=== PATIENT | female | born 1950 | race Two or more races ===

== ENCOUNTER 2024-04-01 14:52 | Inpatient (IN) | payer MEDICARE, MEDICAID, SELFPAY ==
[2024-04-01] VITALS (7 sets, daily range): BP systolic 88–120; BP diastolic 55–96; PULSE 80–112; RESP 14–95; TEMP 36.3–37.1; O2SAT 93–100; BMI 26.2; BMI 21.4
--- NOTE | 2024-04-01 16:01 | EKG_ITS ---
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1950 Requested By: Ray Rojas ([facility]) Order Number: [id number] Reading MD: Ray Rojas ([facility]) Measurements Intervals Somis Rate: 81 P: 65 WA: 160 QRS: 55 QRSD: 85 T: 103 QT: 385 QTc: 448 Interpretive Statements SINUS RHYTHM SEPTAL MYOCARDIAL INFARCTION , OF INDETERMINATE AGE [40+ ms Q WAVE IN V1/V2] MODERATE T-WAVE ABNORMALITY, CONSIDER LATERAL ISCHEMIA [-0.1+ mV T WAVE IN I/aVL/V5/V6] Compared to ECG 10/03/2021 08:44:39 Myocardial infarct finding now present Possible ischemia now present T-wave abnormality still present /store/S0/[id number]/[id number].pdf
--- NOTE | 2024-04-01 16:01 | XR_ITS ---
Examination: PA lateral chest 2 views Technique: Upright PA lateral chest 2 views Exam date and time: April 01, 2024 1623 hrs. Comparison February 05, 2016 Indications: Weakness flulike symptoms today. Findings: Opacity in the left lower lung zone most consistent with pneumonia Normal heart size Moderate osteopenia Impression: Findings most consistent with pneumonia in the left mid and lower lung zone, follow-up recommended to document clearing and exclude underlying pulmonary mass
--- NOTE | 2024-04-01 16:02 | PD.EDRME ---
Rapid Medical Screening Exam E Arrival date/time: 04/01/24 14:52 74-year-old female with past medical history of hypertension, diabetes, and CAD presents emergency department complaining of generalized weakness that started last night. Chief Complaint: Flu Like Symptoms Time Seen by Provider: 04/01/24 15:48 Vital signs: Vital Signs Temperature 97.4 F 04/01/24 15:33 Pulse Rate 83 04/01/24 15:33 Respiratory Rate 18 04/01/24 15:33 Blood Pressure 94/64 04/01/24 15:33 Pulse Oximetry (%) 98 04/01/24 15:33 Oxygen Delivery Method Room Air 04/01/24 15:33 Vital signs reviewed by provider: Yes
[2024-04-01 16:28] LABS: Basophils # (Auto) 0.1 Thou/mm3 (0.0-0.2); Basophils % (Auto) 0 % (0-2.5); Eosinophils % (Auto) 0 % (0-10); Hematocrit 40.5 % (36.0-46.0); Hemoglobin 13.2 g/dL (12.0-16.0); Immature Granulocytes % (Auto) 1 % (0-0); Immature Granulocytes Auto 0.12 Thou/mm3 (0.00-0.00); Lymphocytes # (Auto) 3.3 Thou/mm3 (1.0-4.8); Lymphocytes % (Auto) 14 % (10-50); Mean Corpuscular HGB Conc 32.6 g/dl (31.0-37.0); Mean Corpuscular Hemoglobin 27.7 pg (25.0-35.0); Mean Corpuscular Volume 85 fL (80-100); Monocytes # (Auto) 1.4 Thou/mm3 (0.0-0.8); Monocytes % (Auto) 6 % (0-12); Neutrophils # (Auto) 18.4 Thou/mm3 (1.8-7.7); Neutrophils % (Auto) 79 % (37-80); Nucleated Red Blood Cell % 0 /100 WBC (0); Platelet Count 353 Thou/mm3 (140-440); RDW Standard Deviation 42.6 fL (36.4-46.3); Red Blood Count 4.76 Miln/mm3 (4.00-5.20); White Blood Count 23.3 Thou/mm3 (3.6-11.0)
[2024-04-01 16:57] LABS: Alanine Aminotransferase 15 U/L (10-49); Albumin, Serum 5.1 gm/dL (3.4-4.8); Albumin/Globulin Ratio 1.5 (1.2-2.2); Alkaline Phosphatase 72 U/L (46-116); Anion Gap 14 (7-16); Aspartate Amino Transferase 19 U/L (0-34); BUN/Creatinine Ratio 14 Ratio (12-20); Bilirubin,Total 0.6 mg/dL (0.3-1.2); Blood Urea Nitrogen 17 mg/dL (9-23); Calcium 9.7 mg/dL (8.3-10.6); Calcium (Corrected) 9.7 mg/dL (8.5-10.1); Carbon Dioxide 21.1 mMol/L (20.0-31.0); Chloride 98 mMol/L (98-107); Creatinine (Component) 1.2 mg/dL (0.6-1.3); Estimated Creatinine Clearance 28.1 mL/min (>60); Globulin 3.3 gm/dL (2.3-3.5); Glucose 264 mg/dL (74-106); Osmolality,Calculated 276 (275-295); Potassium 4.2 mMol/L (3.4-5.1); Sodium 133 mMol/L (136-145); Total Protein 8.4 gm/dL (5.7-8.2); eGFR 48 See Note
[2024-04-01 17:02] LABS: Troponin I 1.675 ng/mL (0.0-0.045)
[2024-04-01 17:17] LABS: B-Type Natriuretic Peptide 1648 pg/mL (0-100)
--- NOTE | 2024-04-01 18:00 | PD.EDADULT ---
ED General RME/HPI General Chief complaint: Flu Like Symptoms Stated complaint: FEVER 102/TIRED/SWEATING/WEAK SINCE LAST NIGHT Time Seen by Provider: 04/01/24 15:48 Arrival date/time: 04/01/24 14:52 RME / HPI RME / HPI narrative: 04/01/24 14:52 RME: 74-year-old female with past medical history of hypertension, diabetes, and CAD presents emergency department complaining of generalized weakness that started last night. KAREN HPI: 74 y/o F with advanced CAD who presents with 1 day of generalized malaise, chills and fevers. She denies cough, shortness of breath or chest pain. She denies sick contacts. She measured an oral temp of 101F at home and took 2 tablets of tylenol prior to arrival. Related Data Home Medications ?Medication ?Instructions ?Recorded ?Confirmed atorvastatin 20 mg tablet 1 tab PO HS 10/03/21 04/12/23 empagliflozin 25 mg tablet 1 tab PO QDAY 10/03/21 04/12/23 (Jardiance) isosorbide mononitrate 30 mg 1 tab PO QDAY 10/03/21 04/12/23 tablet,extended release 24 hr metformin 1,000 mg tablet 1 tab PO BID 10/03/21 04/12/23 atenolol 50 mg tablet 50 mg PO QDAY 04/12/23 04/12/23 glyburide 5 mg tablet 5 mg PO TID 04/12/23 04/12/23 mirtazapine 15 mg tablet 15 mg PO QDAY 04/12/23 04/12/23 Allergies Allergy/AdvReac Type Severity Reaction Status Date / Time No Known Allergies Allergy Verified 04/01/24 14:55 Review of Systems Review of Systems Systems Reviewed: All systems reviewed, normal except as documented ED Exam Narrative Physical exam: GENERAL APPEARANCE: AxOx4, generally well-appearing, no acute distress. HEENT: NC, AT. MMM. EOMI, clear conjunctiva, oropharynx clear. NECK: Supple without lymphadenopathy. No stiffness or restricted ROM. HEART: Normal rate and regular rhythm, normal S1/S1, no m/r/g LUNGS: CTAB, moving air well. No crackles or wheezes are heard. ABDOMEN: Soft, nontender, nondistended with good bowel sounds heard. BACK: No midline C/T/L spine pain or deformity, No CVAT, no obvious deformity. EXTREMITIES: Without cyanosis, clubbing or edema. MUSCULOSKELETAL: FROM of all major joints, no chest tenderness NEUROLOGICAL: Grossly nonfocal. Alert and oriented, moving all 4 extremities. CN not formally tested but appear grossly intact. Observed to ambulate with normal gait. Skin: Warm and dry without any rash. Course Quality Measures none Orders Category Date Time Status Admit to Inpatient Status Routine Admission 04/01/24 18:10 Active Patient Condition Routine Admission 04/01/24 18:11 Ordered Bedside COVID-19 Antigen Test NOW Care 04/01/24 16:02 Active Bedside Influenza A&B Antigen Test NOW Care 04/01/24 16:02 Completed EKG (ED ONLY) *Do not use* NOW Care 04/01/24 16:01 Completed Flu & Pneumonia Vaccine Screen ONCE Care 04/01/24 18:11 Active Notify provider NEEDED Care 04/01/24 18:11 Active Obtain weight daily Care 04/01/24 18:11 Active Consult to Cardiology Stat Cons 04/01/24 17:56 Ordered EKG (ED Only) Stat Exams 04/01/24 16:01 Draft XR chest 2V Stat Exams 04/01/24 16:01 Completed BNP [B-Type Natriuretic Peptide] Stat Lab 04/01/24 16:17 Completed Blood Culture (Lab) Stat Lab 04/01/24 18:05 Received CBC AM DRAW Lab 04/05/24 05:00 Ordered CBC AM DRAW Lab 04/06/24 05:00 Ordered CBC AM DRAW Lab 04/02/24 05:00 Ordered CBC AM DRAW Lab 04/03/24 05:00 Ordered CBC AM DRAW Lab 04/04/24 05:00 Ordered CBC Stat Lab 04/01/24 16:17 Completed Comprehensive Metabolic Panel AM DRAW Lab 04/05/24 05:00 Ordered Comprehensive Metabolic Panel AM DRAW Lab 04/06/24 05:00 Ordered Comprehensive Metabolic Panel AM DRAW Lab 04/02/24 05:00 Ordered Comprehensive Metabolic Panel AM DRAW Lab 04/03/24 05:00 Ordered Comprehensive Metabolic Panel AM DRAW Lab 04/04/24 05:00 Ordered Comprehensive Metabolic Panel Stat Lab 04/01/24 16:17 Completed Lactate (Lactic Acid) Stat Lab 04/01/24 17:54 Results Lipid Panel AM DRAW Lab 04/02/24 05:00 Ordered Magnesium AM DRAW Lab 04/05/24 05:00 Ordered Magnesium AM DRAW Lab 04/06/24 05:00 Ordered Magnesium AM DRAW Lab 04/02/24 05:00 Ordered Magnesium AM DRAW Lab 04/03/24 05:00 Ordered Magnesium AM DRAW Lab 04/04/24 05:00 Ordered Phosphorous AM DRAW Lab 04/05/24 05:00 Ordered Phosphorous AM DRAW Lab 04/06/24 05:00 Ordered Phosphorous AM DRAW Lab 04/02/24 05:00 Ordered Phosphorous AM DRAW Lab 04/03/24 05:00 Ordered Phosphorous AM DRAW Lab 04/04/24 05:00 Ordered Procalcitonin Stat Lab 04/01/24 17:54 Received Thyroid Stimulating Hormone AM DRAW Lab 04/02/24 05:00 Ordered Troponin I Stat Lab 04/01/24 16:17 Completed Acetaminophen Tab [Tylenol Tab] Med 04/01/24 18:11 Active 650 mg PO Q6H PRN Acetaminophen Tab [Tylenol Tab] Med 04/01/24 18:11 Active 650 mg PO Q6H PRN Azithromycin Inj [Zithromax Inj] 500 mg Med 04/01/24 17:29 Active Sodium Chloride 0.9% 250 ml [Ns] 250 ml IV X1 Azithromycin Po [Zithromax PO] Med 04/02/24 09:00 Ordered 500 mg PO QDAY Docusate Sod [Colace] Med 04/02/24 09:00 Active 100 mg PO QDAY Heparin Inj Med 04/01/24 22:00 Active 5,000 unit SC Q8HR Ondansetron Inj [Zofran Inj] Med 04/01/24 18:11 Active 4 mg IV Q6H PRN Oseltamivir [Tamiflu] Med 04/02/24 09:00 Ordered 75 mg PO BID Oseltamivir [Tamiflu] Med 04/01/24 17:51 Discontinued 75 mg PO X1 ONE Sodium Chloride 0.9% 1000 ml [Ns] 1,000 ml Med 04/01/24 17:29 Active IV 999 mls/hr cefTRIAXone/D5w 1gm IV premix [Rocephin/D5w 1gm IV Med 04/01/24 18:13 Ordered premix] 50 ml IV QDAY cefTRIAXone/D5w 1gm IV premix [Rocephin/D5w 1gm IV Med 04/01/24 17:29 Discontinued premix] 50 ml IV X1 Vital Signs Vital signs: Vital Signs Temperature 97.4 F 04/01/24 15:33 Pulse Rate 83 04/01/24 15:33 Respiratory Rate 18 04/01/24 15:33 Blood Pressure 94/64 04/01/24 15:33 Pulse Oximetry (%) 98 04/01/24 15:33 Oxygen Delivery Method Room Air 04/01/24 15:33 SpO2 98% on room air, patient is not hypoxic Procedures -ED EKG Interpretation #1: Date of EK04/01/24 Time of EK:17 Rate: 81 Interpretation: Interpreted by me EKG Impression: Normal sinus rhythm, Normal QRS and Normal intervals Additional EKG comment: q waves and nonspecific ST changes in septal anterior leads MDM Patient data External records reviewed:: [facility] previous records (EKG compared to last EKG on record done 10/03/2021) Clinical information provided by:: patient, family and spouse Social determinants that could affect healthcare access:: none Patient has the following chronic illnesses:: Hypertension, dyslipidemia, [id number] diabetes, coronary artery disease How is presenting disease/condition affected by chronic disease/condition?: exacerbated by Evaluation data The following diagnostics were reviewed and interpreted by me:: lab results, radiology exam(s) and EKG tracing(s) Lab and/or radiology exams considered but not ordered:: None Interpretation Summary: As per narrative Medications Medications considered but not ordered:: Heparin Medication administrations:: Medication Administration History Acetaminophen (Acetaminophen 325 Mg Tablet) 650 mg PO Q6H PRN PRN Reason: Fever >100.5 Stop: 05/01/24 18:10 Acetaminophen (Acetaminophen 325 Mg Tablet) 650 mg PO Q6H PRN PRN Reason: PAIN SCALE 1-3 (mild Stop: 05/01/24 18:10 Azithromycin (Azithromycin 250 Mg Tablet) 500 mg PO QDAY [facility] Stop: 04/09/24 08:59 Docusate Sodium (Docusate Sod 100 Mg Capsule) 100 mg PO QDAY [facility]; Protocol Stop: 05/02/24 08:59 Heparin Sodium (Porcine) (Heparin Sod Inj 5000 Unit/Ml Vial) 5,000 unit SC Q8HR [facility] Stop: 04/15/24 21:59 Sodium Chloride (Ns) 1,000 mls @ 999 mls/hr IV .Q1H1M ONE Stop: 04/01/24 18:29 Last Admin: 04/01/24 18:07 Dose: 999 mls/hr Documented By: ARLET Azithromycin 500 mg/ Sodium (Chloride) 250 mls @ 250 mls/hr IV X1 ONE Stop: 04/01/24 18:28 Last Admin: 04/01/24 18:08 Dose: 250 mls/hr Documented By: ARLET Ceftriaxone Sodium/Dextrose (Rocephin/D5w 1gm Iv Premix) 50 mls @ 100 mls/hr IV QDAY [facility] Stop: 04/08/24 18:12 Ondansetron HCl (Ondansetron Inj 2 Mg/Ml Inj 2 Ml) 4 mg IV Q6H PRN; Protocol PRN Reason: NAUSEA OR VOMITING Stop: 05/01/24 18:10 Oseltamivir Phosphate (Oseltamivir 75 Mg Capsule) 75 mg PO BID [facility] Stop: 04/09/24 08:59 Discontinued Medications Ceftriaxone Sodium/Dextrose (Rocephin/D5w 1gm Iv Premix) 50 mls @ 100 mls/hr IV X1 ONE Stop: 04/01/24 17:58 Last Admin: 04/01/24 18:17 Dose: 100 mls/hr Documented By: ARLET Oseltamivir Phosphate (Oseltamivir 75 Mg Capsule) 75 mg PO X1 ONE Stop: 04/01/24 17:52 Above Consultations Consultation(s) initiated? (list below): Yes Consultation #1 (Physician, Specialty, Details): Cardiology, Dr. Claros: Case discussed at length, we reviewed her current EKG, previous EKG done in 2021, and her laboratory results with elevated troponin, and feels this is consistent with her infectious picture and a type II NSTEMI. Does not recommend heparin at this time and aggressive treatment of her infectious process Time: 17:50 Diagnosis Differential Diagnosis ED Complaint MDM: Pneumonia, influenza, COVID, UTI, sepsis, ACS, AMI Most likely diagnosis given after review of the tests above:: See below Admission Indicated Admission indicated?: indicated Explain why admission is indicated or not indicated:: As per narrative Admission Request Was there a request for admission?: Yes Admission Attestation Admission request attestation: Discussed case with [Dr. Watkins] from Hospitalist service regarding admission. Discussed patients ED course, exam findings, labs, and radiology results. The Hospitalist [agrees] to accept the patient for admission. Disposition Plan Disposition Plan: Admit Medical Decision Making MDM Narrative MDM Narrative: Ms. Pickard presents to the emergency department with symptoms consistent with an infectious process. She has reported fevers, myalgias and visible chills and rigors on my exam. She denies chest pain or shortness of breath however highest on suspicion would be an infection of a pulmonary source. As result laboratory testing, chest x-ray ordered. She has a history of advanced coronary artery disease and EKG shows very new Q waves and nonspecific ST changes in the anterior septal leads which appear changed from her EKG in 2021. This is fitting more with having had an myocardial infarction, though she does not report. She does report an angiogram earlier this year that shows a complete blockage of one of her vessels . Her troponin returned significantly elevated at 1.67 in the setting of a normal creatinine of 1.2. EKGs and these laboratory results were reviewed with cardiology, Dr. Juliano Claros, and agrees that she likely had an NV in the past and has a very fragile cardiac status. Her troponin will reflect a type II NSTEMI in response to the stress of her infections and is recommending aggressive treatment of her infection and to hold off on heparin at this point. He will continue to consult. Patient returned negative on her COVID and influenza, however given the current seasonal exposure, her symptoms, chest x-ray findings, her negative predictive value for influenza testing is poor therefore is treated empirically here with Tamiflu along with IV ceftriaxone and azithromycin for community-acquired pneumonia. Case was discussed with hospitalist service for further aggressive treatment of her pneumonia and monitoring/treatment of her cardiac status Differential Diagnosis Differential Diagnosis: Pneumonia, influenza, COVID, UTI, sepsis, ACS, AMI Lab Data 04/01/24 16:17 04/01/24 16:17 Labs: Lab Results 04/01/24 04/01/24 Range/Units 16:17 17:54 WBC 23.3 H (3.6-11.0) Thou/mm3 RBC 4.76 (4.00-5.20) Miln/mm3 Hgb 13.2 (12.0-16.0) g/dL Hct 40.5 (36.0-46.0) % MCV 85 (80-100) fL MCH 27.7 (25.0-35.0) pg MCHC 32.6 (31.0-37.0) g/dl RDW Std Deviation 42.6 (36.4-46.3) fL Plt Count 353 (140-440) Thou/mm3 Neut % (Auto) 79 (37-80) % Lymph % (Auto) 14 (10-50) % [place] % (Auto) 6 (0-12) % Eos % (Auto) 0 (0-10) % Baso % (Auto) 0 (0-2.5) % Neut # (Auto) 18.4 H (1.8-7.7) Thou/mm3 Lymph # (Auto) 3.3 (1.0-4.8) Thou/mm3 [place] # (Auto) 1.4 H (0.0-0.8) Thou/mm3 Eos # (Auto) 0.0 (0.0-0.5) Thou/mm3 Baso # (Auto) 0.1 (0.0-0.2) Thou/mm3 Immature Gran # (Auto) 0.12 H (0.00-0.00) Thou/mm3 Absolute Nucleated RBC 0.00 (0.00-0.00) Thou/mm3 Immature Gran % 1 H (0-0) % Nucleated RBC % 0 (0) /100 WBC Sodium 133 L (136-145) mMol/L Potassium 4.2 (3.4-5.1) mMol/L Chloride 98 (98-107) mMol/L Carbon Dioxide 21.1 (20.0-31.0) mMol/L Anion Gap 14 (7-16) BUN 17 (9-23) mg/dL Creatinine 1.2 (0.6-1.3) mg/dL Estim Creat Clear Calc 28.1 L (>60) mL/min eGFR 48 L (60 - ) See Note BUN/Creatinine Ratio 14 (12-20) Ratio Glucose 264 H (74-106) mg/dL Calculated Osmolality 276 (275-295) Lactic Acid 5.8 H* (0.4-2.0) mMol/L Calcium 9.7 (8.3-10.6) mg/dL Corrected Calcium 9.7 (8.5-10.1) mg/dL Total Bilirubin 0.6 (0.3-1.2) mg/dL AST 19 (0-34) U/L ALT 15 (10-49) U/L Alkaline Phosphatase 72 (46-116) U/L Troponin I 1.675 H* (0.0-0.045) ng/mL B-Natriuretic Peptide 1648 H* (0-100) pg/mL Total Protein 8.4 H (5.7-8.2) gm/dL Albumin 5.1 H (3.4-4.8) gm/dL Globulin 3.3 (2.3-3.5) gm/dL Albumin/Globulin Ratio 1.5 (1.2-2.2) Critical Care Time Critical Care Time Critical Care Time: Yes Total Critical Care Time (min.): 35 Attestation: Excluding billable procedures for the rapid response, analysis, management, deliberation with specialist, and documentation to vent the very possible risk of cardiopulmonary decompensation and/or Discharge Plan Plan Patient Disposition: Admit Acute Care w/in Hospital Prescriptions/Referrals Prescriptions/Med Rec: No Action atorvastatin 20 mg tablet 1 tab PO HS Patient Comments: TAKE 1 TABLET BY MOUTH EVERY DAY isosorbide mononitrate 30 mg tablet extended release 24 hr 1 tab PO QDAY Patient Comments: TAKE 1 TABLET BY MOUTH EVERY DAY metformin 1,000 mg tablet 1 tab PO BID Hold Instructions: Resume on 04/14/23. RESUME MEDICATION ON THIS DATE AT YOUR USUAL TIME Patient Comments: TAKE 1 TABLET BY MOUTH TWICE A DAY Jardiance 25 mg tablet 1 tab PO QDAY Patient Comments: TAKE 1 TABLET BY MOUTH EVERY DAY glyburide 5 mg Tablet 5 mg PO TID mirtazapine 15 mg Tablet 15 mg PO QDAY atenolol 50 mg Tablet 50 mg PO QDAY Referrals: Adrian Ruiz MD [Primary Care Provider] - In 1 week Problem List Clinical Impression: Pneumonia, Non-ST elevation NV (NSTEMI) Patient/Caregiver Discharge Instructions Print Language: Panjabi ([place]) Stand Alone Forms: Violetta Award Info., Patient Portal Info Letter
[2024-04-01] MEDS: SODIUM CHLORIDE 0.9% 1000 ML 1,000 ML 999 ML IV ×2 (18:07→20:25)
[2024-04-01] MEDS: AZITHROMYCIN INJ 500 MG in SODIUM CHLORIDE 0.9% 250 ML 250 ML 250 MG IV (18:08)
--- NOTE | 2024-04-01 18:08 | PD.RESEVENT ---
Documentation for date of: 04/01/24 Event Note Event Note: Call received after 6pm from ED 74 y/o F with PMHx of HTN, DM, CAD, presented with flu like symptoms such as general malaise, fever and chills. Found to have leukocytosis and Left mid and lower lobe pneumonia on CXR, and elevated troponins. Cardiology, Dr. Claros was consulted recommended no heparin drip and to just trend troponins at this time. Antibiotics were started, was given 1L of fluids. Admission for Left lower lobe pneumonia and NSTEMI type 2. Case discussed with my attending Dr. June Granado MD PGY-1
[2024-04-01] MEDS: cefTRIAXone/D5w 1gm IV premix 50 ML IV (18:17)
[2024-04-01 18:18] LABS: Lactate (Lactic Acid) 5.8 mMol/L (0.4-2.0)
[2024-04-01] MEDS: OSELTAMIVIR 75 MG CAPSULE PO (19:13)
[2024-04-01 19:26] LABS: Troponin I 1.239 ng/mL (0.0-0.045)
--- NOTE | 2024-04-01 19:47 | ESHP_ITS ---
Documentation for date of: 04/01/24 HPI History of Present Illness Chief complaint: Fever, lethargic and chest pain History of present illness: Ms Pickard is a 74-year-old darrell-speaking female with past medical history of diabetes mellitus, coronary artery disease and hypertension presented to [facility] on 04/01/24 with chief complaint of fever, lethargic and chest pain. Patient reported her symptoms started yesterday night she started feeling tired, lethargic, reported having fever and chills, denies any cough, headache. Son at bedside reported that he checked her temperature at home which was 101 F and he gave her Tylenol twice. She also complains of chest pain, describes it as pressure-like, reports she has ordered off chest pain at rest, follows up with senior data analyst Dr. Arteaga outpatient, reports she has severe occlusion and triple-vessel of her heart, follows up frequently with senior data analyst, reports he advised against angiogram. Otherwise patient denies any abdominal pain, nausea and vomiting. ED Course: ED Vitals: On presentation BP 94/64, P 83, RR 18, temp 97.4, O2 sat 98 on room air ED Labs: ED labs significant for WBC count 23.3, neutrophil 18.4, sodium 133, GFR 48, glucose 264, lactate 5.8, troponin 1.675, BNP 1648, total protein 8.4, albumin 5.1 ED Imaging:Chest x-ray in ED shows findings most consistent with pneumonia in the left mid and lower lung zone, follow-up recommended to document clearing and exclude underlying pulmonary mass. EKG negative for any ST elevation ED Treatment: Patient was given 1 L sodium chloride bolus, tamiflu, ceftriaxone and azithromycin in ED. Senior Economist Dr. Ludin Claros was consulted in ED, EKG and case reviewed, suspicion of type II NSTEMI in response to her infection and is recommending aggressive treatment of her infection and to hold off on heparin at this point. Patient admitted for acute respiratory distress secondary to pneumonia and NSTEMI Type II Review of Systems Review of Systems Narrative Review of Systems: ROS: -CONSTITUTIONAL: Denies weight loss, positive for fever and chills. -HEENT: Denies changes in vision and hearing. -RESPIRATORY: Denies SOB and cough. -CV: Denies palpitations and positive for Chest Pain. -GI: Denies abdominal pain, nausea, vomiting,constipation and diarrhea. -: Denies dysuria and urinary frequency. -MSK: Denies myalgia and joint pain. -SKIN: Denies rash and pruritus. -NEUROLOGICAL: Denies headache and syncope. -PSYCHIATRIC: Denies recent changes in mood. Denies anxiety and depression. Past Medical History Past Medical History Comments PMH COMMENT: PMH: Positive for diabetes mellitus, coronary artery disease and hypertension PSHx: Cardiac cath in April 2023 positive for Severe calcific triple vessel coronary artery disease with 100% stenosis of the left anterior descending coronary artery, 50% stenosis of the mid and distal left circumflex coronary artery, 99% stenosis of the tiny caliber first obtuse marginal branch, 60 and 50% stenosis of the second obtuse marginal branch and in its bifurcations, 80% stenosis of small caliber third obtuse marginal branch, 70% stenosis of very small caliber fourth obtuse marginal branch and 70% stenosis of small caliber posterior descending branch of the left circumflex coronary artery with 70% stenosis over a long segment of mid to distal nondominant small caliber right coronary artery Allergies: NKA Social history: Son at bedside -Smoking: Denies -Alcohol Use: Denies -Illicit Drug Use: Denies Family History: Reports no significant family history Exam Vital Signs Temp Pulse Resp BP Pulse Ox O2 Del Method 98.2 F 93 19 120/96 H 100 Room Air 04/01/24 17:32 04/01/24 17:32 04/01/24 17:32 04/01/24 17:32 04/01/24 17:32 04/01/24 17:32 Narrative Exam Physical Exam General: Awake and in no acute distress. Conversational and non-toxic appearing. HEENT: Normocephalic, atraumatic, mucous membranes moist. Heart: Regular rate and rhythm, no murmurs. Lungs: Clear to auscultation with no wheezing or crackles. Abdomen: Soft, nondistended, nontender, positive bowel sounds. ?No guarding or rebound tenderness. Neurologic: Alert and oriented x3, no gross neurological deficit, and patient able to move all 4 extremities. Extremities: No edema. Skin: No rash or ecchymoses. Results: Labs 04/01/24 16:17 04/01/24 16:17 Labs: Short CBC 04/01/24 Range/Units 16:17 WBC 23.3 H (3.6-11.0) Thou/mm3 Hgb 13.2 (12.0-16.0) g/dL Hct 40.5 (36.0-46.0) % Plt Count 353 (140-440) Thou/mm3 BMP 04/01/24 16:17 Sodium 133 L Potassium 4.2 Chloride 98 Carbon Dioxide 21.1 BUN 17 Creatinine 1.2 Glucose 264 H Calcium 9.7 Cardiac Enzymes 04/01/24 04/01/24 Range/Units 16:17 17:54 Troponin I 1.675 H* 1.239 H* D (0.0-0.045) ng/mL Liver Function 04/01/24 Range/Units 16:17 Total Bilirubin 0.6 (0.3-1.2) mg/dL AST 19 (0-34) U/L ALT 15 (10-49) U/L Alkaline Phosphatase 72 (46-116) U/L Albumin 5.1 H (3.4-4.8) gm/dL Quality Measures Quality Measures none Advance care planning discussed with:: patient and child Medications Home Medications and Allergies Home Medications ?Medication ?Instructions ?Recorded ?Confirmed ?Type isosorbide mononitrate 30 mg 1 tab PO QDAY 10/03/21 04/01/24 History tablet,extended release 24 hr metformin 1,000 mg tablet 1 tab PO BID 10/03/21 04/01/24 History glyburide 5 mg tablet 5 mg PO TID 04/12/23 04/01/24 History mirtazapine 15 mg tablet 15 mg PO QDAY 04/12/23 04/01/24 History atenolol 25 mg tablet (Tenormin) 25 mg PO QDAY 04/01/24 04/01/24 History atorvastatin 40 mg tablet (Lipitor) 40 mg PO QDAY 04/01/24 04/01/24 History clopidogrel 75 mg tablet (Plavix) 75 mg PO QDAY 04/01/24 04/01/24 History ranolazine 500 mg tablet,extended 500 mg PO BID 04/01/24 04/01/24 History release,12 hr Allergies Allergy/AdvReac Type Severity Reaction Status Date / Time No Known Allergies Allergy Verified 04/01/24 14:55 Visit Medications Acetaminophen (Acetaminophen 325 Mg Tablet) 650 mg PO Q6H PRN PRN Reason: Fever >100.5 Stop: 05/01/24 18:10 Acetaminophen (Acetaminophen 325 Mg Tablet) 650 mg PO Q6H PRN PRN Reason: PAIN SCALE 1-3 (mild Stop: 05/01/24 18:10 Azithromycin (Azithromycin 250 Mg Tablet) 500 mg PO QDAY [facility] Stop: 04/09/24 08:59 Dextrose (Dextrose 50%-Water Inj 50 Ml Syringe) 25 ml IV Q15MIN PRN PRN Reason: BG 50-70 responsive npo pt Stop: 05/01/24 19:15 Dextrose (Dextrose 50%-Water Inj 50 Ml Syringe) 50 ml IV Q15MIN PRN PRN Reason: BG <50 OR BG <70 & pt unresponsive Stop: 05/01/24 19:15 Docusate Sodium (Docusate Sod 100 Mg Capsule) 100 mg PO QDAY [facility]; Protocol Stop: 05/02/24 08:59 Glucagon (Glucagon Inj 1 Mg Vial) 1 mg IM Q15MIN PRN PRN Reason: BG <70, and no IV access Heparin Sodium (Porcine) (Heparin Sod Inj 5000 Unit/Ml Vial) 5,000 unit SC Q8HR [facility] Stop: 04/15/24 21:59 Ceftriaxone Sodium/Dextrose (Rocephin/D5w 1gm Iv Premix) 50 mls @ 100 mls/hr IV QDAY [facility] Stop: 04/09/24 08:59 Insulin Human Lispro (Insulin Lispro (Admelog) 1 Unit/0.01 Ml Unit) 0 unit SC ACHS [facility]; Protocol Stop: 05/01/24 20:59 Ondansetron HCl (Ondansetron Inj 2 Mg/Ml Inj 2 Ml) 4 mg IV Q6H PRN; Protocol PRN Reason: NAUSEA OR VOMITING Stop: 05/01/24 18:10 Oseltamivir Phosphate (Oseltamivir 75 Mg Capsule) 75 mg PO BID [facility] Stop: 04/09/24 08:59 Discontinued Medications Sodium Chloride (Ns) 1,000 mls @ 999 mls/hr IV .Q1H1M ONE Stop: 04/01/24 18:29 Last Infusion: 04/01/24 19:11 Dose: Infused Azithromycin 500 mg/ Sodium (Chloride) 250 mls @ 250 mls/hr IV X1 ONE Stop: 04/01/24 18:28 Last Infusion: 04/01/24 19:34 Dose: Infused Ceftriaxone Sodium/Dextrose (Rocephin/D5w 1gm Iv Premix) 50 mls @ 100 mls/hr IV X1 ONE Stop: 04/01/24 17:58 Last Infusion: 04/01/24 19:10 Dose: Infused Sodium Chloride (Ns) 1,000 mls @ 999 mls/hr IV .Q1H1M ONE Stop: 04/01/24 19:34 Oseltamivir Phosphate (Oseltamivir 75 Mg Capsule) 75 mg PO X1 ONE Stop: 04/01/24 17:52 Last Admin: 04/01/24 19:13 Dose: 75 mg Sodium Chloride (Sodium Chloride Rt 10% 15 Ml Nebu) 5 ml INH X1 ONE Stop: 04/01/24 19:44 Assessment & Plan Plan Summary: Ms Pickard is a 74-year-old darrell-speaking female with past medical history of diabetes mellitus, coronary artery disease and hypertension presented to [facility] on 04/01/24 with chief complaint of fever, lethargic and chest pain. Patient admitted for acute respiratory distress secondary to pneumonia and NSTEMI Type II. #Acute Respiratory Distress secondary to #Left lower lobe pneumonia #Community-acquired pneumonia # Leukocytosis Patient complained of fever, lethargy, tiredness since yesterday, reported having chills denies any cough, had temperature of 101 relieved with Tylenol. Chest x-ray showed findings most consistent with pneumonia in the left mid and lower lung zone, follow-up recommended to document clearing and exclude underlying pulmonary mass. WBC count 23.3 in ED on admission. Bedside flu and COVID-negative. Elevated lactate 5.8 on admission. Patient was given 1 L sodium chloride bolus, tamiflu, ceftriaxone and azithromycin in ED. CURB-65 Score 1 Plan: -Ordered 1 L NaCl bolus -Continue ceftriaxone and azithromycin (04/01- -Continue Tamiflu 75 mg p.o. twice daily -Supplemental oxygen as needed -Tylenol as needed for fever -MRSA nasal screen -Follow-up RSV, Legionella -Repeat influenza A and B panel -Sputum culture/Gram stain -Follow-up blood culture # Cardiac chest pain # NSTEMI type II # Coronary artery disease Patient complained of pressure-like chest pain on and off, has on and off pain at rest Patient follows up with Dr. Arteaga outpatient reports taking isosorbide mononitrate and ranolazine at home Cardiac cath done in April significant for triple vessel disease Troponin on presentation 1.675, EKG negative for ST elevation Dr. Ludin Claros was consulted in ED, EKG and case reviewed, suspicion of type II NSTEMI in response to her infection Cardiology recommended aggressive treatment of her infection and to hold off on heparin at this point. Plan: -Trend troponin every 6 hours -Cardiology consulted, appreciate recommendations #Acute kidney injury Prerenal likely, BUN 17, creatinine 1.2, GFR 48 on admission Baseline GFR more than 60 Plan: -Patient was given 2 L bolus -Follow renal panel in a.m. -Renally dose medication -Avoid nephrotoxic agents # Type 2 diabetes mellitus Patient on metformin and glipizide at home On admission blood glucose 264 Plan: -Sliding scale insulin -Fingerstick blood glucose ACHS -Follow hemoglobin A1c in a.m. -Hypoglycemia protocol in place # Hypertension -Blood pressure soft for now we will continue to hold antihypertensives DVT prophylaxis: Heparin GI prophylaxis: Not indicated Diet: Carb consistent Lines: Peripheral IV Code status: Full code Case discussed with Attending Dr. Boswell. Ana Ji PGY1 Attending Provider Attestation/Addendum 74-year-old female was admitted for weakness malaise, found to have elevated troponin. She has leukocytosis most likely from pneumonia. Past medical history significant for coronary artery disease, diabetes mellitus, hypertension and hyperlipidemia. Patient was started on antibiotic IV. She has borderline low blood pressure. Midodrine was started. Discussed with housestaff
[2024-04-01] MEDS: SODIUM CHLORIDE RT 10% 15 ML NEBU 5 ML INH (20:04)
--- NOTE | 2024-04-01 20:20 | PC.RT ---
sputum induction attempted pt unable to expectorate son remains at bedside and also educated on sputum induction for pt, RN made aware pt unable to expectorate at this time.
[2024-04-01] MEDS: INSULIN LISPRO (AdmeLOG) 1 UNIT/0.01 ML UNIT SC (20:25)
[2024-04-01 21:02] LABS: Reflex Lactate? Y
[2024-04-01 21:06] LABS: Lactate (Lactic Acid) 2.3 mMol/L (0.4-2.0)
[2024-04-01] MEDS: HEPARIN SOD INJ 5000 UNIT/ML VIAL SC (21:16)
[2024-04-01] MEDS: MIDODRINE 5 MG TABLET 10 MG PO (21:16)
[2024-04-02] VITALS (17 sets, daily range): BP systolic 97–129; BP diastolic 50–101; PULSE 89–109; RESP 13–33; TEMP 36.6–36.9; O2SAT 93–100; BMI 21.2
[2024-04-02 00:05] LABS: Reflex Lactate? Y
[2024-04-02 00:56] LABS: Lactic Acid, 3 HR 1.2 mMol/L (0.4-2.0)
[2024-04-02 01:37] LABS: Troponin I 1.905 ng/mL (0.0-0.045)
[2024-04-02 01:56] LABS: Collection Type, Urine Clean Catch
[2024-04-02 02:35] LABS: Bacteria,Urine Rare; Bilirubin,Urine Negative (Negative); Blood,Urine 1+ (Negative); Clarity,Urine Clear (Clear/Hazy); Color,Urine Lt-Yellow (Lt Yel-Yel); Culture Indicated,Urine Not Indicated; Glucose, Urine 4+ (Negative); Ketones,Urine 2+ (Negative); Leukocyte Esterase,Urine Positive (Negative); Nitrite,Urine Negative (Negative); Protein,Urine 1+ (Neg - Trace); RBC,Urine 3 /hpf (0-3); Specific Gravity,Urine 1.029 (1.001-1.035); Squamous Epithelial Cell,Urine 4 /hpf (0-5); Urobilinogen,Urine Negative mg/dL (0.0-1.0); WBC,Urine 6 /hpf (0-5)
[2024-04-02] MEDS: HEPARIN SOD INJ 5000 UNIT/ML VIAL SC ×3 (05:36→21:22)
[2024-04-02 05:55] LABS: Basophils # (Auto) 0.1 Thou/mm3 (0.0-0.2); Basophils % (Auto) 0 % (0-2.5); Eosinophils % (Auto) 0 % (0-10); Hematocrit 31.7 % (36.0-46.0); Hemoglobin 10.3 g/dL (12.0-16.0); Immature Granulocytes % (Auto) 0 % (0-0); Immature Granulocytes Auto 0.09 Thou/mm3 (0.00-0.00); Lymphocytes # (Auto) 2.7 Thou/mm3 (1.0-4.8); Lymphocytes % (Auto) 13 % (10-50); Mean Corpuscular HGB Conc 32.5 g/dl (31.0-37.0); Mean Corpuscular Hemoglobin 27.8 pg (25.0-35.0); Mean Corpuscular Volume 85 fL (80-100); Monocytes # (Auto) 1.6 Thou/mm3 (0.0-0.8); Monocytes % (Auto) 8 % (0-12); Neutrophils # (Auto) 16.1 Thou/mm3 (1.8-7.7); Neutrophils % (Auto) 79 % (37-80); Nucleated Red Blood Cell % 0 /100 WBC (0); Platelet Count 257 Thou/mm3 (140-440); RDW Standard Deviation 43.7 fL (36.4-46.3); Red Blood Count 3.71 Miln/mm3 (4.00-5.20); White Blood Count 20.5 Thou/mm3 (3.6-11.0)
[2024-04-02 06:28] LABS: Alanine Aminotransferase 19 U/L (10-49); Albumin, Serum 4.1 gm/dL (3.4-4.8); Albumin/Globulin Ratio 1.6 (1.2-2.2); Alkaline Phosphatase 55 U/L (46-116); Anion Gap 18 (7-16); Aspartate Amino Transferase 45 U/L (0-34); BUN/Creatinine Ratio 22 Ratio (12-20); Bilirubin,Total 0.3 mg/dL (0.3-1.2); Blood Urea Nitrogen 20 mg/dL (9-23); Calcium 8.3 mg/dL (8.3-10.6); Calcium (Corrected) 8.3 mg/dL (8.5-10.1); Cardiac Risk Estimate 3.3 RATIO (3.7-5.6); Chloride 106 mMol/L (98-107); Cholesterol 139 mg/dL (132-200); Creatinine (Component) 0.9 mg/dL (0.6-1.3); Estimated Creatinine Clearance 37.4 mL/min (>60); Globulin 2.5 gm/dL (2.3-3.5); Glucose 163 mg/dL (74-106); HDL Cholesterol 42 mg/dL (40-60); LDL Cholesterol,Calculated 66 mg/dL (0-130); Magnesium 2.2 mg/dL (1.6-2.6); Osmolality,Calculated 282 (275-295); Phosphorous 2.8 mg/dL (2.4-5.1); Potassium 4.2 mMol/L (3.4-5.1); Sodium 138 mMol/L (136-145); Thyroid Stimulating Hormone 0.54 uIU/mL (0.55-4.78); Total Protein 6.6 gm/dL (5.7-8.2); Triglycerides 154 mg/dL (30-150); eGFR > 60 See Note
[2024-04-02 06:30] LABS: Carbon Dioxide 14.5 mMol/L (20.0-31.0)
[2024-04-02 06:38] LABS: Glucose Estimated Average 154 mg/dL (80-131)
[2024-04-02] MEDS: SODIUM BICARBONATE 650 MG TABLET PO (07:35)
[2024-04-02] MEDS: INSULIN LISPRO (AdmeLOG) 1 UNIT/0.01 ML UNIT SC (07:35)
--- NOTE | 2024-04-02 07:40 | PC.NURSE ---
Gave sodium bicarb at 0735, scanned medication but MAR won't let it be saved due to Will RN is on Chart, called and left message with [facility]
[2024-04-02] MEDS: cefTRIAXone/D5w 1gm IV premix 50 ML IV (09:32)
[2024-04-02] MEDS: DOCUSATE SOD 100 MG CAPSULE PO (09:33)
[2024-04-02] MEDS: OSELTAMIVIR 75 MG CAPSULE PO (09:33)
[2024-04-02] MEDS: AZITHROMYCIN 250 MG TABLET 500 MG PO (09:33)
[2024-04-02] MEDS: ONDANSETRON INJ 2 MG/ML INJ 2 ML 4 MG IV (10:50)
--- NOTE | 2024-04-02 11:15 | ECHO_ITS ---
Transthoracic Echo Report Ht (in): 59 Wt (lb): 105 Exam Location: Portable Status: Inpatient Fitness And Wellness Manager: Jenna Robles Indications: Procedure Performed: BP: 117 / 67 HR: 100 Rhythm: Sinus Technical Quality: Fair MEASUREMENTS (Male / Female) Normal Values 2D ECHO LV Diastolic Diameter PLAX 4.6 cm 4.2 - 5.9 / 3.9 - 5.3 cm LV Systolic Diameter PLAX 3.6 cm IVS Diastolic Thickness 0.9 cm 0.6 - 1.0 / 0.6 - 0.9 cm LVPW Diastolic Thickness 0.9 cm 0.6 - 1.0 / 0.6 - 0.9 cm LV Relative Wall Thickness 0.4 LVOT Diameter 1.7 cm LA Volume Index 33.2 cm?/m? 16 - 28 cm?/m? Ascending Aorta Diameter 2.5 cm M-MODE Aortic Root Diameter MM 2.3 cm LA Systolic Diameter MM 3.6 cm LA Ao Ratio MM 1.6 MV E Point Septal Separation 1.0 cm AV Cusp Separation MM 1.7 cm DOPPLER AV Peak Velocity 177.0 cm/s AV Peak Gradient 12.5 mmHg AV Mean Gradient 7.0 mmHg AV Velocity Time Integral 32.3 cm LVOT Peak Velocity 72.8 cm/s LVOT Peak Gradient 2.1 mmHg LVOT Velocity Time Integral 12.7 cm LVOT Cardiac Index 2033.8 cm?/min?m? AV Area Cont Eq vti 0.9 cm? AV Area Cont Eq pk 0.9 cm? MV Peak Velocity 109.0 cm/s MV Peak Gradient 4.8 mmHg MV Mean Velocity 70.1 cm/s MV Mean Gradient 2.0 mmHg MV Area PHT 5.6 cm? MR Peak Velocity 391.0 cm/s MR Peak Gradient 61.2 mmHg Mitral E Point Velocity 98.0 cm/s Mitral A Point Velocity 81.0 cm/s Mitral E to A Ratio 1.2 LV E' Lateral Velocity 6.7 cm/s Mitral E to LV E' Lateral Ratio 14.5 LV E' Septal Velocity 4.3 cm/s Mitral E to LV E' Septal Ratio 22.5 TR Peak Velocity 237.0 cm/s TR Peak Gradient 22.5 mmHg FINDINGS Left Ventricle Normal left ventricular size, wall thickness. severe anterior apical akinesis and mild lateral hypok inesis The ejection fraction is visually estimated at 30 %. Right Ventricle The right ventricle is normal in size and systolic function. The estimated right ventricular systoli c pressure, 27mmHg. RAP 5. Left Atrium The left atrium is normal by two-dimensional, color flow and Doppler imaging with no structural abnormalities, no thrombus formation present. Right Atrium The right atrium is normal by two-dimensional imaging, color flow and Doppler imaging with no struct ural abnormalities, no thrombus formation present. Atrial Septum The interatrial septum appears normal with no evidence of a shunt. Aorta The aorta is normal by two-dimensional, color flow and Doppler interrogation. Mitral Valve The mitral valve is normal by two-dimensional, color flow and Doppler interrogation. There is modera te mitral valve regurgitation. Aortic Valve The aortic valve is trileaflet. Mild sclerosis without stenosis. There is trace aortic valve regurgi tation. Tricuspid Valve The tricuspid valve is normal by two-dimensional, color flow and Doppler interrogation. There is mil d tricuspid valve regurgitation. Pulmonic Valve There is no significant pulmonic valve regurgitation. Vessels The pulmonary artery appears normal. The inferior vena cava pulmonary and hepatic veins appear je l. Pericardium The pericardium is normal by two-dimensional imaging. There is no significant pericardial effusion. CONCLUSIONS Normal LV size with Severe hypokinesis anterior septal, apical septal segments LV EF 30% Normal RV size and function. Moderate MR. Mild TR. Mild AV sclerosis without stenosis. Mariana Mosqueda (Electronically Signed) Final Date: 03 April 2024 17:14
[2024-04-02 12:42] LABS: Base Excess, Venous -12 (-3-3); O2 Saturation, Venous 58 % (96-97); PCO2, Venous 26 mmHg (36-56); PO2, Venous 33 mmHg (15-58)
[2024-04-02 12:43] LABS: Lactate (Lactic Acid) 1.5 mMol/L (0.4-2.0)
[2024-04-02 12:48] LABS: Beta Hydroxybutyrate > 6.4 mmol/L (<0.6)
--- NOTE | 2024-04-02 13:30 | PC.NURSE ---
Dr. Cowan made aware of labs
--- NOTE | 2024-04-02 13:58 | PC.NURSE ---
Dr. Claros at bedside
[2024-04-02] MEDS: CLOPIDOGREL BISULFATE 75 MG TABLET PO (14:36)
--- NOTE | 2024-04-02 15:54 | PC.NURSE ---
PATIENT TRANSFERRED TO THE ICU ALERT AND ORIENTED PATIENT HAS NO COMPLAINTS OF PAIN AT THIS TIME. NEW IVS PLACED LABS DRAWN FOR DKA PROTOCOL.
--- NOTE | 2024-04-02 15:55 | ESPR_ITS ---
<Statement entered by Alejandra Bowden MD - 04/02/24 16:23> Patient was seen and examined at bedside. Patient continued to be lethargic however she reported mild improvement. We noticed the patient today has significant acidosis with sodium bicarb of 14. For that reason, we ordered for the patient VBG and also beta-hydroxybutyrate to rule out euglycemic DKA versus starvation ketosis. Beta-hydroxybutyrate came back more than 6.4 and pH on VBG was 7.3. ICU team was consulted recommended to admit the patient for management of euglycemic DKA. - Patient's plan and care discussed with my attending, Dr. June Bowden MD Internal Medicine PGY-2 Documentation for date of: 04/02/24 Subjective Subjective Interval history: Patient examined at bedside today. No acute overnight events. Says she is not having any chest pain or shortness of breath. Is wondering when she is going to go home. Denies any sick contacts. 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 No other complaints this time Exam Vital Signs Temp Pulse Resp BP Pulse Ox O2 Del Method O2 Flow Rate 98.1 F 100 31 H 121/64 98 Nasal Cannula 2 04/02/24 15:22 04/02/24 15:22 04/02/24 15:22 04/02/24 15:22 04/02/24 15:22 04/02/24 15:22 04/02/24 15:22 FiO2 40 04/02/24 07:37 Narrative Exam General: AAOx3, NAD, pleasant woman HEENT: Moist mucous membranes, conjunctiva clear, EOMI, PERRLA, Cardiovascular: S1, S2, radial pulses +2 bilat, RRR Pulmonary: CTAB bilat no cough, no wheezing GI: No tenderness to light or deep palpitation, no guarding, rigidity, rebound tenderness or distension Extremities: No presence of trace or pitting edema in lower extremities bilaterally, dorsalis pedis pulses +2 bilaterally Neuro: AAOx3, no focal motor or sensory deficits in the UE or LE bilat Psych: Good judgement, thought and behavior. Cooperative Objective Labs 04/03/24 04:57 04/03/24 04:57 Labs: Laboratory Results - last 24 hr 04/01/24 04/01/24 04/01/24 16:17 17:54 20:46 WBC 23.3 H RBC 4.76 Hgb 13.2 Hct 40.5 MCV 85 MCH 27.7 MCHC 32.6 RDW Std Deviation 42.6 Plt Count 353 Neut % (Auto) 79 Lymph % (Auto) 14 [place] % (Auto) 6 Eos % (Auto) 0 Baso % (Auto) 0 Neut # (Auto) 18.4 H Lymph # (Auto) 3.3 [place] # (Auto) 1.4 H Eos # (Auto) 0.0 Baso # (Auto) 0.1 Immature Gran # (Auto) 0.12 H Absolute Nucleated RBC 0.00 Immature Gran % 1 H Nucleated RBC % 0 VBG pH VBG pCO2 VBG pO2 VBG O2 Sat (Amy) VBG Base Excess Sodium 133 L Potassium 4.2 Chloride 98 Carbon Dioxide 21.1 Anion Gap 14 BUN 17 Creatinine 1.2 Estim Creat Clear Calc 28.1 L eGFR 48 L BUN/Creatinine Ratio [address] Glu mg/dL Hemoglobin A1c Calculated Osmolality 276 Lactic Acid 5.8 H* 2.3 H Calcium 9.7 Corrected Calcium 9.7 Phosphorus Magnesium Total Bilirubin 0.6 AST 19 ALT 15 Alkaline Phosphatase 72 Troponin I 1.675 H* 1.239 H* D B-Natriuretic Peptide 1648 H* Total Protein 8.4 H Albumin 5.1 H Globulin 3.3 Albumin/Globulin Ratio 1.5 Triglycerides Cholesterol LDL Cholesterol, Calc HDL Cholesterol Cholesterol/HDL Ratio Beta-Hydroxybutyrate/Acetoacetate Procalcitonin 0.20 TSH Free T4 Ur Collection Type Urine Color Urine Clarity Urine pH Ur Specific [place] Urine Protein Urine Glucose (UA) Urine Ketones Urine Blood Urine Nitrite Urine Bilirubin Urine Urobilinogen (Auto) Ur Leukocyte Esterase Urine RBC Urine WBC Ur Squamous Epith Cells Urine Bacteria Ur Culture Indicated? 04/02/24 04/02/24 04/02/24 00:25 01:47 05:28 WBC 20.5 H RBC 3.71 L Hgb 10.3 L D Hct 31.7 L MCV 85 MCH 27.8 MCHC 32.5 RDW Std Deviation 43.7 Plt Count 257 D Neut % (Auto) 79 Lymph % (Auto) 13 [place] % (Auto) 8 Eos % (Auto) 0 Baso % (Auto) 0 Neut # (Auto) 16.1 H Lymph # (Auto) 2.7 [place] # (Auto) 1.6 H Eos # (Auto) 0.0 Baso # (Auto) 0.1 Immature Gran # (Auto) 0.09 H Absolute Nucleated RBC 0.00 Immature Gran % 0 Nucleated RBC % 0 VBG pH VBG pCO2 VBG pO2 VBG O2 Sat (Amy) VBG Base Excess Sodium 138 Potassium 4.2 Chloride 106 Carbon Dioxide 14.5 L* Anion Gap 18 H BUN 20 Creatinine 0.9 Estim Creat Clear Calc 37.4 L eGFR > 60 BUN/Creatinine Ratio 22 H Glucose [address] Glu mg/dL 154 H Hemoglobin A1c 7.0 H Calculated Osmolality 282 Lactic Acid 1.2 Calcium 8.3 Corrected Calcium 8.3 L Phosphorus 2.8 Magnesium 2.2 Total Bilirubin 0.3 AST 45 H ALT 19 Alkaline Phosphatase 55 D Troponin I 1.905 H* D B-Natriuretic Peptide Total Protein 6.6 Albumin 4.1 D Globulin 2.5 Albumin/Globulin Ratio 1.6 Triglycerides 154 H Cholesterol 139 LDL Cholesterol, Calc 66 HDL Cholesterol 42 Cholesterol/HDL Ratio 3.3 L Beta-Hydroxybutyrate/Acetoacetate Procalcitonin TSH 0.54 L Free T4 1.00 Ur Collection Type Clean Catch Urine Color Lt-Yellow Urine Clarity Clear Urine pH 5.0 Ur Specific [place] 1.029 Urine Protein 1+ A Urine Glucose (UA) 4+ A Urine Ketones 2+ A Urine Blood 1+ A Urine Nitrite Negative Urine Bilirubin Negative Urine Urobilinogen (Auto) Negative Ur Leukocyte Esterase Positive Urine RBC 3 Urine WBC 6 H Ur Squamous Epith Cells 4 Urine Bacteria Rare Ur Culture Indicated? Not Indicated 04/02/24 12:29 WBC RBC Hgb Hct MCV MCH MCHC RDW Std Deviation Plt Count Neut % (Auto) Lymph % (Auto) [place] % (Auto) Eos % (Auto) Baso % (Auto) Neut # (Auto) Lymph # (Auto) [place] # (Auto) Eos # (Auto) Baso # (Auto) Immature Gran # (Auto) Absolute Nucleated RBC Immature Gran % Nucleated RBC % VBG pH 7.30 L VBG pCO2 26 L VBG pO2 33 VBG O2 Sat (Amy) 58 L VBG Base Excess -12 L Sodium Potassium Chloride Carbon Dioxide Anion Gap BUN Creatinine Estim Creat Clear Calc eGFR BUN/Creatinine Ratio Glucose Estimated Ave Glu mg/dL Hemoglobin A1c Calculated Osmolality Lactic Acid 1.5 Calcium Corrected Calcium Phosphorus Magnesium Total Bilirubin AST ALT Alkaline Phosphatase Troponin I B-Natriuretic Peptide Total Protein Albumin Globulin Albumin/Globulin Ratio Triglycerides Cholesterol LDL Cholesterol, Calc HDL Cholesterol Cholesterol/HDL Ratio Beta-Hydroxybutyrate/Acetoacetate > 6.4 H Procalcitonin TSH Free T4 Ur Collection Type Urine Color Urine Clarity Urine pH Ur Specific [place] Urine Protein Urine Glucose (UA) Urine Ketones Urine Blood Urine Nitrite Urine Bilirubin Urine Urobilinogen (Auto) Ur Leukocyte Esterase Urine RBC Urine WBC Ur Squamous Epith Cells Urine Bacteria Ur Culture Indicated? ABG Interpretation ABG results: 04/02/24 12:29 VBG pH 7.30 L VBG pCO2 26 L VBG pO2 33 VBG Base Excess -12 L Quality Measures Quality Measures none Advance care planning discussed with:: patient Assessment & Plan Assessment Current Active Medications: Generic Name Dose Route Start Last Admin Trade Name Freq PRN Reason Stop Dose Admin Acetaminophen 650 mg 04/01/24 18:11 Acetaminophen 325 Mg Tablet PO 05/01/24 18:10 Q6H PRN Fever >100.5 Acetaminophen 650 mg 04/01/24 18:11 Acetaminophen 325 Mg Tablet PO 05/01/24 18:10 Q6H PRN PAIN SCALE 1-3 (mild Atorvastatin Calcium 40 mg 04/02/24 21:00 Atorvastatin Calcium 20 Mg Tablet PO 05/02/24 20:59 HS HUE Azithromycin 500 mg 04/02/24 09:00 04/02/24 09:33 Azithromycin 250 Mg Tablet PO 04/09/24 08:59 500 mg QDAY HUE Administration Clopidogrel Bisulfate 75 mg 04/02/24 14:30 04/02/24 14:36 Clopidogrel Bisulfate 75 Mg Tablet PO 05/02/24 14:29 75 mg QDAY HUE Administration Dextrose 25 ml 04/01/24 19:16 Dextrose 50%-Water Inj 50 Ml Syringe IV 05/01/24 19:15 Q15MIN PRN BG 50-70 responsive npo pt Dextrose 50 ml 04/01/24 19:16 Dextrose 50%-Water Inj 50 Ml Syringe IV 05/01/24 19:15 Q15MIN PRN BG <50 OR BG <70 & pt unresponsive Dextrose 25 ml 04/02/24 14:38 Dextrose 50%-Water Inj 50 Ml Syringe IV [id number] PRN Blood Sugar - Low Docusate Sodium 100 mg 04/02/24 09:00 04/02/24 09:33 Docusate Sod 100 Mg Capsule PO 05/02/24 08:59 100 mg QDAY HUE Administration Protocol Glucagon 1 mg 04/01/24 19:16 Glucagon Inj 1 Mg Vial IM Q15MIN PRN BG <70, and no IV access Heparin Sodium (Porcine) 5,000 unit 04/01/24 22:00 04/02/24 14:36 Heparin Sod Inj 5000 Unit/Ml Vial SC 04/15/24 21:59 5,000 unit Q8HR HUE Administration Ceftriaxone Sodium/Dextrose 50 mls @ 100 mls/hr 04/02/24 09:00 04/02/24 09:32 Rocephin/D5w 1gm Iv Premix IV 04/09/24 08:59 100 mls/hr QDAY HUE Administration Potassium Chloride 10 meq in 100 mls @ 100 mls/hr 04/02/24 14:38 Kcl Ivpb IV 05/02/24 14:37 .Q1H PRN IF POTASSIUM LESS THAN 3.3 Magnesium Sulfate 2 gm in 50 mls @ 25 mls/hr 04/02/24 14:38 Magnesium Sulfate Ivpb IV 05/02/24 14:37 .Q2H PRN PER DKA PROTOCOL Insulin Human Regular 100 unit 100 mls @ 4.764 mls/hr 04/02/24 14:38 / IV Miscellaneous Supplies IV 05/02/24 14:37 .Q21H PRN PER PROTOCOL Protocol 0.1 UNIT/KG/HR Potassium Chloride 10 meq in 100 mls @ 50 mls/hr 04/02/24 14:38 Kcl Ivpb IV 05/02/24 14:37 PRN PRN K LEVEL 3.3 to 5.3 & BG > 200 Potassium Phosphate 15 mmol in 250 mls @ 62.5 mls/hr 04/02/24 14:38 Pot Phos 15 Mmol In Ns 250 Ml IV 05/02/24 14:37 PRN PRN Phosphate <= 1mg/dL Sodium Phosphate 15 mmol/ 255 mls @ 62.5 mls/hr 04/02/24 14:38 Sodium Chloride IV 05/02/24 14:37 .Q4H5M PRN Phosphate <= 1mg/dL and K> than 5.3 Potassium Chloride 20 meq/ 1,010 mls @ 75 mls/hr 04/02/24 14:56 Lactated Ringer's IV 05/02/24 14:37 .[id number] PRN K LEVEL 3.3 TO 5.3mM/L Potassium Chloride 40 meq/ 1,020 mls @ 75 mls/hr 04/02/24 14:56 Lactated Ringer's IV 05/02/24 14:37 .[id number] PRN K LEVEL < 3.3 mM/L Potassium Chloride 40 meq/ 1,020 mls @ 75 mls/hr 04/02/24 14:56 Dextrose/Lactated Ringer's IV 05/02/24 14:37 .[id number] PRN K LEVEL < 3.3mM/L Potassium Cl/Dextrose/Lact Ringer's 20 meq in 1,000 mls @ 75 mls/hr 04/02/24 14:56 Kcl 20 Meq/L In D5-Lr IV 05/02/24 14:37 .[id number] PRN K LEVEL 3.3 TO 5.3 mM/L Dextrose/Lactated Ringer's 1,000 mls @ 75 mls/hr 04/02/24 14:56 D5-Lr IV 05/02/24 14:37 .[id number] PRN PER PROTOCOL Lactated Ringer's 1,000 mls @ 75 mls/hr 04/02/24 14:56 Lactated Ringers IV 04/03/24 14:37 .[id number] PRN PER PROTOCOL Dextrose 112 ml/ Dextrose/ 1,000 mls @ 75 mls/hr 04/02/24 15:30 Lactated Ringer's IV 04/03/24 18:09 .[id number] [facility] Insulin Human Lispro 0 unit 04/01/24 21:00 04/02/24 11:59 Insulin Lispro (Admelog) 1 Unit/0.01 Ml Unit SC 05/01/24 20:59 Not Given ACHS [facility] Protocol Mirtazapine 15 mg 04/03/24 09:00 Mirtazapine 15 Mg Tablet PO 05/03/24 08:59 QDAY [facility] Ondansetron HCl 4 mg 04/01/24 18:11 04/02/24 10:50 Ondansetron Inj 2 Mg/Ml Inj 2 Ml IV 05/01/24 18:10 4 mg Q6H PRN Administration NAUSEA OR VOMITING Protocol Ranolazine 1,000 mg 04/02/24 21:00 Ranolazine 500 Mg Octavia (Non Formulary) PO 05/02/24 20:59 BID HUE Sodium Bicarbonate 50 ml 04/02/24 14:38 Sodium Bicarb Inj 8.4% Syr 50 Ml Syringe IV 05/02/24 14:37 PRN PRN For ph <= to 7.0 Plan Assessment Ms Pickard is a 74-year-old darrell-speaking female with past medical history of diabetes mellitus, coronary artery disease and hypertension presented to [facility] on 04/01/24 with chief complaint of fever, lethargic and chest pain. Patient admitted for acute respiratory distress secondary to pneumonia and NSTEMI Type II. #Acute Hypoxic respiratory failure #Left lower lobe pneumonia #Community-acquired pneumonia #Leukocytosis Patient complained of fever, lethargy, tiredness since yesterday, reported having chills denies any cough, had temperature of 101 relieved with Tylenol. Chest x-ray showed findings most consistent with pneumonia in the left mid and lower lung zone, follow-up recommended to document clearing and exclude underlying pulmonary mass. WBC count 23.3 in ED on admission. Bedside flu and COVID-negative. Elevated lactate 5.8 on admission. Patient was given 1 L sodium chloride bolus, tamiflu, ceftriaxone and azithromycin in ED. CURB-65 Score D/C Tamiflu Given fluid bolus in ER Plan: -Continue ceftriaxone and azithromycin (04/01- -Supplemental oxygen as needed -Tylenol as needed for fever -F/uMRSA nasal screen -Follow-up RSV, Legionella -F/u Sputum culture/Gram stain -Follow-up blood culture #NSTEMI type II, likely demand ischemia #Hx of Coronary artery disease Patient complained of pressure-like chest pain on and off, has on and off pain at rest Patient follows up with Dr. Arteaga outpatient reports taking isosorbide mononitrate and ranolazine at home Cardiac cath done in April significant for triple vessel disease Troponin on presentation 1.675, EKG negative for ST elevation Dr. Ludin Claros was consulted in ED, EKG and case reviewed, suspicion of type II NSTEMI in response to her infection Cardiology recommended aggressive treatment of her infection and to hold off on heparin at this point. Troponin 1.6 -> 1.2 -> 1.9, will not continue to trend further Cardiac Cath and coronary angiogram (04/2023) show severe triple vessel disease 100% stenosis of LAD, 50% stenosis of mid and distal LCA, 99% stenosis of tiny caliber first obtuse marginal branch Sees Dr. Arteaga, recommended medical management Cardiology, Dr. Claros, does not recommend further intervention at this time Plan: ?Cardiology consulted, appreciate recommendations ?Resumed home aspirin, Plavix and ranolazine #Acute kidney injury #Metabolic acidosis Prerenal likely, BUN 17, creatinine 1.2, GFR 48 on admission Baseline GFR more than 60 S/p 2L bolus Given sodium bicarbonate 650 tab Acidosis could be from lactate, but unsure at this time as lactate has improved Plan: -Follow renal panel in a.m. -Renally dose medication -Avoid nephrotoxic agents #Type 2 diabetes mellitus #? Starvation ketosis vs Euglycemic DKA On admission blood glucose 264 AG of 18 HCO3- ~15, pt is a bit acidotic Concern for Euglyemic DKA Pt takes Tradjenta, could cause euglyemic DKA Plan: ?VBG, hydroxybutyrate -Sliding scale insulin -Fingerstick blood glucose ACHS -Follow hemoglobin A1c in a.m. -Hypoglycemia protocol in place #Hx of Hypertension -Blood pressure soft for now we will continue to hold antihypertensives #Health Maintenance Disposition: Telemetry DVT prophylaxis: Heparin GI prophylaxis: None at this time Diet: Carb consistent CODE STATUS: Full Patient seen and care discussed with my senior resident, Dr. Bowden, and my attending physician, Dr. June Cowan, PGY-1 Attending Provider Attestation/Addendum I have examined the patient, reviewed labs and imaging findings, discussed the case with the resident(s), and reviewed entered orders. I agree with the plan of care as outlined in this note, with these additional summaries/recommendations: Patient seen at bedside. Patient admitted overnight for acute hypoxic respiratory failure secondary to bacterial pneumonia. Chest x-ray showed opacity in the left mid and lower lung zone. May need to repeat chest x-ray to document clearing and exclude pulmonary mass. Pneumonia most likely secondary to gram-negative rods. Continue IV Rocephin and azithromycin. Sputum and blood cultures taken and we will follow-up results when available. Urine culture pending although patient does not complain of any urinary symptoms at this time. Patient has extensive cardiac history with heart catheterization on 04/12/2023 that revealed severe triple-vessel disease with 100% stenosis of the left anterior descending coronary artery, 50% stenosis of mid and distal left circumflex coronary artery, and 99% stenosis of tiny caliber first obtuse marginal branch. Patient was recommended to continue medical management. We will resume home Plavix and atorvastatin. Patient was found to have elevated troponin which peaked at 1.675 and EKG with no acute ST changes indicative of acute ischemia. Cardiology was consulted and likely related to demand ischemia. Patient has history of diabetes mellitus type 2 and currently takes glyburide, metformin, and Tradjenta. Patient was noted to have anion gap metabolic acidosis on chemistry panel. VBG obtained which revealed pH 7.3. Beta hydroxybutyrate ordered and elevated to greater than 6.4. Patient found to have euglycemic diabetic ketoacidosis and ICU team consulted. Patient will be upgraded for management and appreciate ICU team being readily available. Patient and family updated on the plan and in agreement. We will resume care once euglycemic DKA has resolved. Dr. Watkins
[2024-04-02 15:59] LABS: Albumin, Serum 3.9 gm/dL (3.4-4.8); Anion Gap 20 (7-16); BUN/Creatinine Ratio 19 Ratio (12-20); Blood Urea Nitrogen 19 mg/dL (9-23); Calcium 8.8 mg/dL (8.3-10.6); Calcium (Corrected) 8.9 mg/dL (8.5-10.1); Carbon Dioxide 11.8 mMol/L (20.0-31.0); Chloride 103 mMol/L (98-107); Estimated Creatinine Clearance 33.7 mL/min (>60); Glucose 170 mg/dL (74-106); Magnesium 2.2 mg/dL (1.6-2.6); Osmolality,Calculated 276 (275-295); Phosphorous 2.7 mg/dL (2.4-5.1); Potassium 4.2 mMol/L (3.4-5.1); Sodium 135 mMol/L (136-145); eGFR 59 See Note
--- NOTE | 2024-04-02 16:28 | PD.RESEVENT ---
Documentation for date of: 04/02/24 Event Note Event Note: Dandy is a 74 y/o female with PMHx of severe CAD, DM2 HTN who is currently admitted for AHRF 2/2 to community-acquired pneumonia and NSTEMI type II was requiring ICU upgrade. Patient currently has a bicarb of 15, anion gap of 18, however sugars 170. VBG was ordered which showed a pH of 7.3, pCO2 of 26, and beta butyrate showed a level of ~6.4. Considering patient takes tradjenta at home, this could be euglycemic DKA as a side effect which will require insulin drip and fluids. ICU was consulted, who agreed to take patient in for management of euglycemic DKA. Patient seen and care discussed with my attending physician, Dr. June Cowan, PGY-1
[2024-04-02] MEDS: DEXTROSE 50%-WATER INJ 50 ML SYRINGE IV (16:53)
[2024-04-02] MEDS: DEXTROSE IV (16:54)
[2024-04-02] MEDS: POT CHL ADDITIVE IV (16:54)
[2024-04-02] MEDS: LACTATED RINGERS IV (16:54)
--- NOTE | 2024-04-02 16:57 | ESCONSULT_ITS ---
RE: GIACOMO COWART : 1950 DATE OF CONSULTATION: 04/02/2024 CONSULTING PHYSICIANS: Hospitalist, Ana Ji MD and Tin Boswell MD REASON FOR CONSULTATION: Evaluation of elevated troponin levels and possible myocardial infarction. CHIEF COMPLAINT: Shortness of breath and weakness. HISTORY OF PRESENT ILLNESS: The patient is a 74-year-old female with a longstanding history of hypertension, diabetes mellitus, known CAD, multivessel coronary artery disease, total occlusion of the LAD, chronically occluded and multiple other vessel, treated with medical management, severe LV dysfunction, ejection fraction of 35%. Angiogram in 04/[address] Kevin Rodríguez. The patient presented to the hospital with fever, shortness of breath, lethargy, but no chest pain, general weakness, very tired, was also complaining of fever and chills at home and cough, but no expectoration. Temperature went up to 101, but has come down since then. She also had some shortness of breath, chest pressure, but no chest pain. Last angiogram in 04/[address] Rodríguez showed evidence of severe multivessel coronary artery disease, triple vessel CAD, 100% occluded left anterior descending artery, 50% stenosis in mid and distal LAD, 99% stenosis in small OM branch, 50% stenosis in second OM branch and multiple small vessels, obtuse marginal branches and was recommended medical management. Ejection fraction is only 35% because of extensive anterior wall myocardial infarction. Right coronary artery also showed 70% stenosis long segmental, not suitable candidate for surgery. The patient also on presentation has severe leukocytosis with a white count 23 and 20.5 and chemistry panel shows now she has developed acidosis. CO2 is 14 and she appears to have diabetic ketoacidosis with acidosis, anion gap of 18. Spool Worker seen the patient and possibly transferred to ICU for management of DKA. PAST MEDICAL HISTORY: Hypertension, diabetes, hypercholesterolemia, multivessel CAD. MEDICATIONS: 1. Atenolol 25 daily. 2. Atorvastatin 40 daily. 3. Plavix 75 daily. 4. Glyburide 5 mg three times daily. 5. Isosorbide 30 mg daily. 6. Metformin 500 mg on hold. 7. Ranolazine 500 mg b.i.d. SOCIAL HISTORY: The patient is , lives with family, does not smoke or drink alcoholic beverages. FAMILY HISTORY: Noncontributory. PHYSICAL EXAMINATION: GENERAL: Chronically-ill, acutely-ill, thin-built female, alert, awake, and in no acute distress. VITAL SIGNS: Blood pressure is 97/60, pulse rate is 96, respirations 28, temperature normal, saturation is 98%. HEENT: Head is atraumatic normocephalic. Eyes normal. ENT normal. NECK: Supple. No JVD. CHEST: Symmetrical. LUNGS: Decrease breath sounds. No rales or rhonchi. HEART: S1, S2, regular. No gallops. ABDOMEN: Thin and soft. EXTREMITIES: No edema. GENITOURINARY AND RECTAL: Not performed. NEUROLOGIC: Normal. DIAGNOSTIC DATA: Electrocardiogram shows sinus rhythm. QRS complex V1 to V4 anteroseptal myocardial infarction age undetermined. Lab data showed elevated acidosis and increasing anion gap with white count of 20,000 and chemistry panel showed slight elevation of troponin levels. Troponin level was 1.6 and now it is 1.9. Chest x-ray reportedly showed evidence consistent with pneumonia left middle and lower lung zones. IMPRESSION: 1. Elevated troponin level, possibly type 2 troponin level, type 2 myocardial infarction, and ST-elevation myocardial infraction. 2. Diabetes mellitus with acidosis, possibly diabetic ketoacidosis. 3. Pneumonia. 4. Chronic kidney disease. 5. Chronic systolic heart failure with ejection fraction 35%. 6. Severe multivessel coronary artery disease, chronic occlusion of LAD, 100% occlusion, multiple vessel disease, not suitable for bypass surgery or revascularization. RECOMMENDATIONS: The patient is a 74-year-old lady with multiple comorbidities admitted to the hospital with what appears to be pneumonia and DKA. Troponin level is possibly type 2 troponin due to acute infection and pneumonia with underlying multivessel CAD. Recommendation is to treat it as type 2 troponin. No need for anticoagulation or treated as myocardial infarction at this time. Treatment of diabetic ketosis, sepsis and pneumonia aggressively. I would like to thank referring this patient for cardiovascular evaluation. We will continue to monitor the patient. We will recommend continuing antiplatelet drug therapy aspirin. We will also inform Dr. Rodríguez of the admission tomorrow. DT: 15:21:30 TT: 16:22:00 Ref: [id number] - TID: [id number]
--- NOTE | 2024-04-02 16:58 | ESPR_ITS ---
Documentation for date of: 04/02/24 Subjective Subjective Interval history: Ms Pickard is a 74-year-old darrell-speaking female with past medical history of diabetes mellitus, coronary artery disease and hypertension presented to [facility] on 04/01/24 with chief complaint of fever, lethargic and chest pain. Patient reported her symptoms started yesterday night she started feeling tired, lethargic, reported having fever and chills, denies any cough, headache. Son at bedside reported that he checked her temperature at home which was 101 F and he gave her Tylenol twice. She also complains of chest pain, describes it as pressure-like, reports she has ordered off chest pain at rest, follows up with verifier Dr. 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 Otherwise patient denies any abdominal pain, nausea and vomiting. ED Course: ED Vitals: On presentation BP 94/64, P 83, RR 18, temp 97.4, O2 sat 98 on room air ED Labs: ED labs significant for WBC count 23.3, neutrophil 18.4, sodium 133, GFR 48, glucose 264, lactate 5.8, troponin 1.675, BNP 1648, total protein 8.4, albumin 5.1 ED Imaging:Chest x-ray in ED shows findings most consistent with pneumonia in the left mid and lower lung zone, follow-up recommended to document clearing and exclude underlying pulmonary mass. EKG negative for any ST elevation ED Treatment: Patient was given 1 L sodium chloride bolus, tamiflu, ceftriaxone and azithromycin in ED. Surgical Nurse Practitioner Dr. Ludin Claros was consulted in ED, EKG and case reviewed, suspicion of type II NSTEMI in response to her infection and is recommending aggressive treatment of her infection and to hold off on heparin at this point. Patient admitted for acute respiratory distress secondary to pneumonia and NSTEMI Type II. Patient developed significant acidosis with serum bicarb of 14.5. Beta-hydroxybutyrate was more than 6.4 and VBG showed pH 7.3. Patient was then admitted to ICU for euglycemic DKA. Per cardio consult, patient has poor heart function with EF 35%. DKA protocol modified for slower rate of infusion, and D10-LR IVF was prepared by pharmacy instead of D5-LR. Exam Vital Signs Temp Pulse Resp BP Pulse Ox O2 Del Method O2 Flow Rate 98.1 F 100 31 H 121/64 98 Nasal Cannula 2 04/02/24 15:22 04/02/24 15:22 04/02/24 15:22 04/02/24 15:22 04/02/24 15:22 04/02/24 15:22 04/02/24 15:22 FiO2 40 04/02/24 07:37 Narrative Exam PE: Gen: Well-developed and well-nourished. HEENT: NCAT, PERRLA, EOMI, anicteric conjunctivae. Dry mucous membranes. CVS: normal S1 and S2. RRR. No M/R/G. Resp: CTA B/L. No rhonchi, rales, crackles or wheezing. Abd: soft, non-tender, non-distended. MSK: Good ROM in BUE & BLE. No rash. Trace bliateral lower extremity edema. Neuro: CN II-XII grossly intact. Strength 5/5 in BUE & BLE. Alert and oriented x3. Psych: appropriate mood and affect. Objective Labs 04/04/24 05:00 04/04/24 11:29 Labs: Laboratory Results - last 24 hr 04/01/24 04/01/24 04/01/24 16:17 17:54 20:46 WBC RBC Hgb Hct MCV MCH MCHC RDW Std Deviation Plt Count Neut % (Auto) Lymph % (Auto) [place] % (Auto) Eos % (Auto) Baso % (Auto) Neut # (Auto) Lymph # (Auto) [place] # (Auto) Eos # (Auto) Baso # (Auto) Immature Gran # (Auto) Absolute Nucleated RBC Immature Gran % Nucleated RBC % VBG pH VBG pCO2 VBG pO2 VBG O2 Sat (Amy) VBG Base Excess Sodium 133 L Potassium 4.2 Chloride 98 Carbon Dioxide 21.1 Anion Gap 14 BUN 17 Creatinine 1.2 Estim Creat Clear Calc 28.1 L eGFR 48 L BUN/Creatinine Ratio [address] Glu mg/dL Hemoglobin A1c Calculated Osmolality 276 Lactic Acid 5.8 H* 2.3 H Calcium 9.7 Corrected Calcium 9.7 Phosphorus Magnesium Total Bilirubin 0.6 AST 19 ALT 15 Alkaline Phosphatase 72 Troponin I 1.675 H* 1.239 H* D B-Natriuretic Peptide 1648 H* Total Protein 8.4 H Albumin 5.1 H Globulin 3.3 Albumin/Globulin Ratio 1.5 Triglycerides Cholesterol LDL Cholesterol, Calc HDL Cholesterol Cholesterol/HDL Ratio Beta-Hydroxybutyrate/Acetoacetate Procalcitonin 0.20 TSH Free T4 Ur Collection Type Urine Color Urine Clarity Urine pH Ur Specific [place] Urine Protein Urine Glucose (UA) Urine Ketones Urine Blood Urine Nitrite Urine Bilirubin Urine Urobilinogen (Auto) Ur Leukocyte Esterase Urine RBC Urine WBC Ur Squamous Epith Cells Urine Bacteria Ur Culture Indicated? 04/02/24 04/02/24 04/02/24 00:25 01:47 05:28 WBC 20.5 H RBC 3.71 L Hgb 10.3 L D Hct 31.7 L MCV 85 MCH 27.8 MCHC 32.5 RDW Std Deviation 43.7 Plt Count 257 D Neut % (Auto) 79 Lymph % (Auto) 13 [place] % (Auto) 8 Eos % (Auto) 0 Baso % (Auto) 0 Neut # (Auto) 16.1 H Lymph # (Auto) 2.7 [place] # (Auto) 1.6 H Eos # (Auto) 0.0 Baso # (Auto) 0.1 Immature Gran # (Auto) 0.09 H Absolute Nucleated RBC 0.00 Immature Gran % 0 Nucleated RBC % 0 VBG pH VBG pCO2 VBG pO2 VBG O2 Sat (Amy) VBG Base Excess Sodium 138 Potassium 4.2 Chloride 106 Carbon Dioxide 14.5 L* Anion Gap 18 H BUN 20 Creatinine 0.9 Estim Creat Clear Calc 37.4 L eGFR > 60 BUN/Creatinine Ratio 22 H Glucose [address] Glu mg/dL 154 H Hemoglobin A1c 7.0 H Calculated Osmolality 282 Lactic Acid 1.2 Calcium 8.3 Corrected Calcium 8.3 L Phosphorus 2.8 Magnesium 2.2 Total Bilirubin 0.3 AST 45 H ALT 19 Alkaline Phosphatase 55 D Troponin I 1.905 H* D B-Natriuretic Peptide Total Protein 6.6 Albumin 4.1 D Globulin 2.5 Albumin/Globulin Ratio 1.6 Triglycerides 154 H Cholesterol 139 LDL Cholesterol, Calc 66 HDL Cholesterol 42 Cholesterol/HDL Ratio 3.3 L Beta-Hydroxybutyrate/Acetoacetate Procalcitonin TSH 0.54 L Free T4 1.00 Ur Collection Type Clean Catch Urine Color Lt-Yellow Urine Clarity Clear Urine pH 5.0 Ur Specific [place] 1.029 Urine Protein 1+ A Urine Glucose (UA) 4+ A Urine Ketones 2+ A Urine Blood 1+ A Urine Nitrite Negative Urine Bilirubin Negative Urine Urobilinogen (Auto) Negative Ur Leukocyte Esterase Positive Urine RBC 3 Urine WBC 6 H Ur Squamous Epith Cells 4 Urine Bacteria Rare Ur Culture Indicated? Not Indicated 04/02/24 04/02/24 12:29 15:22 WBC RBC Hgb Hct MCV MCH MCHC RDW Std Deviation Plt Count Neut % (Auto) Lymph % (Auto) [place] % (Auto) Eos % (Auto) Baso % (Auto) Neut # (Auto) Lymph # (Auto) [place] # (Auto) Eos # (Auto) Baso # (Auto) Immature Gran # (Auto) Absolute Nucleated RBC Immature Gran % Nucleated RBC % VBG pH 7.30 L VBG pCO2 26 L VBG pO2 33 VBG O2 Sat (Amy) 58 L VBG Base Excess -12 L Sodium 135 L Potassium 4.2 Chloride 103 Carbon Dioxide 11.8 L* Anion Gap 20 H BUN 19 Creatinine 1.0 Estim Creat Clear Calc 33.7 L eGFR 59 L BUN/Creatinine Ratio 19 [address]ucose [address] Glu mg/dL Hemoglobin A1c Calculated Osmolality 276 Lactic Acid 1.5 Calcium 8.8 Corrected Calcium 8.9 Phosphorus 2.7 Magnesium 2.2 Total Bilirubin AST ALT Alkaline Phosphatase Troponin I B-Natriuretic Peptide Total Protein Albumin 3.9 Globulin Albumin/Globulin Ratio Triglycerides Cholesterol LDL Cholesterol, Calc HDL Cholesterol Cholesterol/HDL Ratio Beta-Hydroxybutyrate/Acetoacetate > 6.4 H Procalcitonin TSH Free T4 Ur Collection Type Urine Color Urine Clarity Urine pH Ur Specific [place] Urine Protein Urine Glucose (UA) Urine Ketones Urine Blood Urine Nitrite Urine Bilirubin Urine Urobilinogen (Auto) Ur Leukocyte Esterase Urine RBC Urine WBC Ur Squamous Epith Cells Urine Bacteria Ur Culture Indicated? ABG Interpretation ABG results: 04/02/24 12:29 VBG pH 7.30 L VBG pCO2 26 L VBG pO2 33 VBG Base Excess -12 L Quality Measures Quality Measures VTE prophylaxis Advance care planning discussed with:: patient and child Assessment & Plan Assessment Current Active Medications: Generic Name Dose Route Start Last Admin Trade Name Freq PRN Reason Stop Dose Admin Acetaminophen 650 mg 04/01/24 18:11 Acetaminophen 325 Mg Tablet PO 05/01/24 18:10 Q6H PRN Fever >100.5 Acetaminophen 650 mg 04/01/24 18:11 Acetaminophen 325 Mg Tablet PO 05/01/24 18:10 Q6H PRN PAIN SCALE 1-3 (mild Atorvastatin Calcium 40 mg 04/02/24 21:00 Atorvastatin Calcium 20 Mg Tablet PO 05/02/24 20:59 HS HUE Azithromycin 500 mg 04/02/24 09:00 04/02/24 09:33 Azithromycin 250 Mg Tablet PO 04/09/24 08:59 500 mg QDAY HUE Administration Clopidogrel Bisulfate 75 mg 04/02/24 14:30 04/02/24 14:36 Clopidogrel Bisulfate 75 Mg Tablet PO 05/02/24 14:29 75 mg QDAY HUE Administration Dextrose 25 ml 04/01/24 19:16 Dextrose 50%-Water Inj 50 Ml Syringe IV 05/01/24 19:15 Q15MIN PRN BG 50-70 responsive npo pt Dextrose 50 ml 04/01/24 19:16 Dextrose 50%-Water Inj 50 Ml Syringe IV 05/01/24 19:15 Q15MIN PRN BG <50 OR BG <70 & pt unresponsive Dextrose 25 ml 04/02/24 14:38 Dextrose 50%-Water Inj 50 Ml Syringe IV [id number] PRN Blood Sugar - Low Docusate Sodium 100 mg 04/02/24 09:00 04/02/24 09:33 Docusate Sod 100 Mg Capsule PO 05/02/24 08:59 100 mg QDAY HUE Administration Protocol Glucagon 1 mg 04/01/24 19:16 Glucagon Inj 1 Mg Vial IM Q15MIN PRN BG <70, and no IV access Heparin Sodium (Porcine) 5,000 unit 04/01/24 22:00 04/02/24 14:36 Heparin Sod Inj 5000 Unit/Ml Vial SC 04/15/24 21:59 5,000 unit Q8HR HUE Administration Ceftriaxone Sodium/Dextrose 50 mls @ 100 mls/hr 04/02/24 09:00 04/02/24 16:12 Rocephin/D5w 1gm Iv Premix IV 04/09/24 08:59 Infused QDAY HUE Infusion Potassium Chloride 10 meq in 100 mls @ 100 mls/hr 04/02/24 14:38 Kcl Ivpb IV 05/02/24 14:37 .Q1H PRN IF POTASSIUM LESS THAN 3.3 Magnesium Sulfate 2 gm in 50 mls @ 25 mls/hr 12/29/24 14:38 Magnesium Sulfate Ivpb IV 05/02/24 14:37 .Q2H PRN PER DKA PROTOCOL Insulin Human Regular 100 unit 100 mls @ 4.764 mls/hr 04/02/24 14:38 / IV Miscellaneous Supplies IV 05/02/24 14:37 .Q21H PRN PER PROTOCOL Protocol 0.1 UNIT/KG/HR Potassium Chloride 10 meq in 100 mls @ 50 mls/hr 04/02/24 14:38 Kcl Ivpb IV 05/02/24 14:37 PRN PRN K LEVEL 3.3 to 5.3 & BG > 200 Potassium Phosphate 15 mmol in 250 mls @ 62.5 mls/hr 04/02/24 14:38 Pot Phos 15 Mmol In Ns 250 Ml IV 05/02/24 14:37 PRN PRN Phosphate <= 1mg/dL Sodium Phosphate 15 mmol/ 255 mls @ 62.5 mls/hr 04/02/24 14:38 Sodium Chloride IV 05/02/24 14:37 .Q4H5M PRN Phosphate <= 1mg/dL and K> than 5.3 Potassium Chloride 20 meq/ 1,010 mls @ 75 mls/hr 04/02/24 14:56 Lactated Ringer's IV 05/02/24 14:37 .[id number] PRN K LEVEL 3.3 TO 5.3mM/L Potassium Chloride 40 meq/ 1,020 mls @ 75 mls/hr 04/02/24 14:56 Lactated Ringer's IV 05/02/24 14:37 .[id number] PRN K LEVEL < 3.3 mM/L Potassium Chloride 40 meq/ 1,020 mls @ 75 mls/hr 04/02/24 14:56 Dextrose/Lactated Ringer's IV 05/02/24 14:37 .[id number] PRN K LEVEL < 3.3mM/L Potassium Cl/Dextrose/Lact Ringer's 20 meq in 1,000 mls @ 75 mls/hr 04/02/24 14:56 Kcl 20 Meq/L In D5-Lr IV 05/02/24 14:37 .[id number] PRN K LEVEL 3.3 TO 5.3 mM/L Dextrose/Lactated Ringer's 1,000 mls @ 75 mls/hr 04/02/24 14:56 D5-Lr IV 05/02/24 14:37 .[id number] PRN PER PROTOCOL Lactated Ringer's 1,000 mls @ 75 mls/hr 04/02/24 14:56 Lactated Ringers IV 04/03/24 14:37 .[id number] PRN PER PROTOCOL Dextrose 112 ml/ Dextrose/ 1,000 mls @ 75 mls/hr 04/02/24 15:30 04/02/24 16:51 Lactated Ringer's IV 04/03/24 18:09 Not Given .[id number] HUE Dextrose 112 ml/ Potassium 1,010 mls @ 75 mls/hr 04/02/24 16:30 04/02/24 16:54 Chloride 20 meq/ Dextrose/ IV 04/03/24 05:57 75 mls/hr Lactated Ringer's .[id number] HUE Administration Mirtazapine 15 mg 04/03/24 09:00 Mirtazapine 15 Mg Tablet PO 05/03/24 08:59 QDAY HUE Ondansetron HCl 4 mg 04/01/24 18:11 04/02/24 10:50 Ondansetron Inj 2 Mg/Ml Inj 2 Ml IV 05/01/24 18:10 4 mg Q6H PRN Administration NAUSEA OR VOMITING Protocol Ranolazine 1,000 mg 04/02/24 21:00 Ranolazine 500 Mg Octavia (Non Formulary) PO 05/02/24 20:59 BID HUE Sodium Bicarbonate 50 ml 04/02/24 14:38 Sodium Bicarb Inj 8.4% Syr 50 Ml Syringe IV 05/02/24 14:37 PRN PRN For ph <= to 7.0 Plan Ms Pickard is a 74-year-old darrell-speaking female with past medical history of diabetes mellitus, coronary artery disease and hypertension presented to [facility] on 04/01/24 with chief complaint of fever, lethargic and chest pain, later developed euglycemic DKA, and was upgraded to ICU for management. Neuro: #No active issues Cardio: #NSTEMI type II #Coronary artery disease Patient complained of pressure-like chest pain on and off, has on and off pain at rest Patient follows up with Dr. Arteaga outpatient reports taking isosorbide mononitrate and ranolazine at home Cardiac cath done in April significant for triple vessel disease Troponin on presentation 1.675, EKG negative for ST elevation Dr. Ludin Claros was consulted in ED, EKG and case reviewed, suspicion of type II NSTEMI in response to her infection Cardiology recommended aggressive treatment of her infection and to hold off on heparin Plan: -Will continue home aspirin, Plavix, statin when patient is no longer n.p.o. -Cardiology consulted, appreciate recommendations -Cardiac monitoring #CHF Per cardiology consult, patient is heart failure with reduced ejection fraction, EF 35%. Patient currently appears euvolemic, no crackles on auscultation of lungs, trace pedal edema, dry mucous membranes. Will provide fluids for DKA, but gentle hydration. -Strict I's and O's -Daily weights -Patient currently n.p.o. -Gentle hydration Pulm: #AHRF secondary to #CAP Patient complained of fever, lethargy, tiredness since yesterday, reported having chills denies any cough, had temperature of 101 relieved with Tylenol. Chest x-ray showed consolidation left mid and lower lung zone, follow-up recommended to document clearing and exclude underlying pulmonary mass. WBC count 23.3 in ED on admission. Bedside flu and COVID-negative. Elevated lactate 5.8 on admission. Patient was given 1 L sodium chloride bolus, tamiflu, ceftriaxone and azithromycin in ED. CURB-65 Score 1 Patient on supplemental O2 1 L/min via nasal cannula. Plan: -Continue ceftriaxone and azithromycin (04/01-) -Supplemental oxygen as needed -Tylenol as needed for fever -MRSA nasal screen -Follow-up RSV, Legionella -Sputum culture/Gram stain pending, follow-up -Follow-up blood culture GI: #No active issues Renal: #Acute kidney injury, resolving Prerenal likely, BUN 17, creatinine 1.2, GFR 48 on admission. Baseline GFR more than 60. Patient received 2L bolus NS Kidney function improved following day. Plan: -IVF per DKA protocol, with reduced rate -Renally dose medication -Avoid nephrotoxic agents -daily labs Endo: #Euglycemic DKA #Type 2 diabetes Patient's history of diabetes. A1c 7% as of 04/02/2024. After patient was admitted to telemetry, developed anion gap metabolic acidosis. Anion gap 20, serum bicarb 11.8, lactic acid 1.5. Beta hydroxybutyrate greater than 6.4. VBG showed pH 7.3, pCO2 26. Patient was upgraded to ICU for management of DKA requiring insulin drip. Reduced rate of hydration due to patient history of CHF. -Modified DKA protocol: Rate of IVF 75 mL/hour. D5 LR replaced with D10 LR. Heme: #Anemia Patient has mild anemia with hemoglobin 10.3. Appeared after patient received 2 L normal saline. No signs of bleeding. -Monitor #Leukocytosis Patient has leukocytosis with WBC greater than 20,000, due to pneumonia. -Treat underlying infection -Monitor ID: #Pneumonia Patient has consolidations in left lung indicating pneumonia. Patient presented with fevers and leukocytosis, developed shortness of breath and hypoxia requiring supplemental O2. -Antibiotics: Ceftriaxone and azithromycin Skin/MSK: #No active issues ICU Health maintenance: Mechanical ventilation: No Sedation: No Diet: NPO DVT ppx: Heparin GI ppx: No Fournier: No IV lines: PIVs Central line: No Arterial line: No Code status: Full Code Plan of care discussed with attending Dr. Cuevas. Mani Dimas MD PGY-1 Attending Provider Attestation/Addendum Patient seen and examined with above resident, Mani Dimas MD. I agree with the findings, assessment, and plan of care as documented except for any differences below. Patient initially admitted with respiratory distress and found to have community-acquired pneumonia complicated by non-STEMI likely secondary to demand ischemia. Patient being followed by cardiology as well, no intervention planned at this time given multivessel disease and a noncandidate for PCI. Patient found to have euglycemic DKA this afternoon. Patient will be transferred to the intensive care unit for close monitoring and transition over to IV insulin. Patient will receive fluid resuscitation but will have to be limited/monitor closely given her reduced ejection fraction and risk for development of decompensated congestive heart failure. Will aggressively replace electrolyte. Suspect precipitant is likely the acute infection and ischemic episode. Patient and family counseled at the bedside on plan of care member agreeable. Total critical care time: I personally spent 35 minutes for review of physiologic parameters, directing plan of care, counseling patient's family at bedside, and coordination of care with other specialists. This is exclusive of time spent teaching housestaff or performing separate billable procedures. Patient continues require critical care services for diabetic ketoacidosis and associated metabolic derangements. Patient continues to be at high risk for morbidity and mortality given her comorbid processes which require close monitoring only available in the intensive care unit.
[2024-04-02] MEDS: INSULIN REG 100 UNITS/100 ML 100 UNIT in PRE-MIXED 1 BAG IV (17:00)
[2024-04-02] MEDS: POT CHL ADDITIVE 20 MEQ in RINGERS LACTATED 1000 ML 1,000 ML 75 MEQ IV (19:20)
[2024-04-02 20:04] LABS: Albumin, Serum 3.8 gm/dL (3.4-4.8); Anion Gap 15 (7-16); BUN/Creatinine Ratio 18 Ratio (12-20); Blood Urea Nitrogen 18 mg/dL (9-23); Calcium 8.8 mg/dL (8.3-10.6); Chloride 106 mMol/L (98-107); Estimated Creatinine Clearance 33.7 mL/min (>60); Glucose 212 mg/dL (74-106); Magnesium 2.1 mg/dL (1.6-2.6); Osmolality,Calculated 278 (275-295); Phosphorous 1.6 mg/dL (2.4-5.1); Potassium 3.6 mMol/L (3.4-5.1); Sodium 135 mMol/L (136-145); eGFR 59 See Note
[2024-04-02 20:06] LABS: Carbon Dioxide 13.7 mMol/L (20.0-31.0)
[2024-04-02] MEDS: ATORVASTATIN CALCIUM 20 MG TABLET 40 MG PO (21:22)
[2024-04-02] MEDS: RANOLAZINE 500 MG TABER (NON FORMULARY) 1000 MG PO (21:22)
[2024-04-03] VITALS (21 sets, daily range): BP systolic 86–138; BP diastolic 59–86; PULSE 79–113; RESP 15–98; TEMP 36.4–37.1; O2SAT 91–97; BMI 21.2
[2024-04-03 01:58] LABS: Albumin, Serum 3.8 gm/dL (3.4-4.8); Anion Gap 10 (7-16); BUN/Creatinine Ratio 17 Ratio (12-20); Blood Urea Nitrogen 17 mg/dL (9-23); Calcium 8.9 mg/dL (8.3-10.6); Calcium (Corrected) 9.1 mg/dL (8.5-10.1); Carbon Dioxide 20.9 mMol/L (20.0-31.0); Chloride 107 mMol/L (98-107); Estimated Creatinine Clearance 33.7 mL/min (>60); Glucose 143 mg/dL (74-106); Magnesium 2.2 mg/dL (1.6-2.6); Osmolality,Calculated 279 (275-295); Phosphorous 1.1 mg/dL (2.4-5.1); Sodium 138 mMol/L (136-145); eGFR 59 See Note
[2024-04-03] MEDS: HEPARIN SOD INJ 5000 UNIT/ML VIAL SC ×3 (05:10→21:38)
[2024-04-03 05:46] LABS: Basophils # (Auto) 0.1 Thou/mm3 (0.0-0.2); Basophils % (Auto) 0 % (0-2.5); Eosinophils % (Auto) 0 % (0-10); Hematocrit 29.5 % (36.0-46.0); Hemoglobin 9.6 g/dL (12.0-16.0); Immature Granulocytes % (Auto) 0 % (0-0); Immature Granulocytes Auto 0.06 Thou/mm3 (0.00-0.00); Lymphocytes # (Auto) 2.4 Thou/mm3 (1.0-4.8); Lymphocytes % (Auto) 13 % (10-50); Mean Corpuscular HGB Conc 32.5 g/dl (31.0-37.0); Mean Corpuscular Hemoglobin 27.6 pg (25.0-35.0); Mean Corpuscular Volume 85 fL (80-100); Monocytes # (Auto) 1.7 Thou/mm3 (0.0-0.8); Monocytes % (Auto) 10 % (0-12); Neutrophils # (Auto) 13.7 Thou/mm3 (1.8-7.7); Neutrophils % (Auto) 77 % (37-80); Nucleated Red Blood Cell % 0 /100 WBC (0); Platelet Count 258 Thou/mm3 (140-440); RDW Standard Deviation 43.4 fL (36.4-46.3); Red Blood Count 3.48 Miln/mm3 (4.00-5.20); White Blood Count 17.9 Thou/mm3 (3.6-11.0)
[2024-04-03 06:41] LABS: Alanine Aminotransferase 31 U/L (10-49); Albumin/Globulin Ratio 1.5 (1.2-2.2); Alkaline Phosphatase 62 U/L (46-116); Anion Gap 10 (7-16); Aspartate Amino Transferase 58 U/L (0-34); BUN/Creatinine Ratio 18 Ratio (12-20); Bilirubin,Total 0.4 mg/dL (0.3-1.2); Blood Urea Nitrogen 16 mg/dL (9-23); Calcium 8.5 mg/dL (8.3-10.6); Calcium (Corrected) 8.5 mg/dL (8.5-10.1); Carbon Dioxide 20.5 mMol/L (20.0-31.0); Chloride 107 mMol/L (98-107); Creatinine (Component) 0.9 mg/dL (0.6-1.3); Estimated Creatinine Clearance 37.4 mL/min (>60); Globulin 2.6 gm/dL (2.3-3.5); Glucose 184 mg/dL (74-106); Magnesium 2.2 mg/dL (1.6-2.6); Osmolality,Calculated 280 (275-295); Potassium 3.8 mMol/L (3.4-5.1); Sodium 137 mMol/L (136-145); Total Protein 6.6 gm/dL (5.7-8.2); eGFR > 60 See Note
[2024-04-03 06:47] LABS: Phosphorous 0.7 mg/dL (2.4-5.1)
[2024-04-03] MEDS: POT PHOS 15 mMol in NS 250 ML 15 MMOL/250 ML BAG 62.5 MMOL IV (06:52)
[2024-04-03] MEDS: INSULIN GLARGINE (Lantus) 5 UNIT/0.05 ML (PER 5 UNITS) 10 UNIT SC (07:14)
[2024-04-03] MEDS: MIRTAZAPINE 15 MG TABLET PO ×2 (08:25→21:37)
[2024-04-03] MEDS: AZITHROMYCIN 250 MG TABLET 500 MG PO (08:25)
[2024-04-03] MEDS: DOCUSATE SOD 100 MG CAPSULE PO (08:25)
[2024-04-03] MEDS: cefTRIAXone/D5w 1gm IV premix 50 ML IV (08:25)
[2024-04-03] MEDS: RANOLAZINE 500 MG TABER (NON FORMULARY) 1000 MG PO ×2 (08:25→21:37)
[2024-04-03] MEDS: CLOPIDOGREL BISULFATE 75 MG TABLET PO (08:25)
[2024-04-03 09:32] LABS: Albumin, Serum 3.9 gm/dL (3.4-4.8); Anion Gap 11 (7-16); BUN/Creatinine Ratio 18 Ratio (12-20); Blood Urea Nitrogen 16 mg/dL (9-23); Calcium 8.9 mg/dL (8.3-10.6); Carbon Dioxide 21.3 mMol/L (20.0-31.0); Chloride 107 mMol/L (98-107); Creatinine (Component) 0.9 mg/dL (0.6-1.3); Estimated Creatinine Clearance 37.4 mL/min (>60); Glucose 180 mg/dL (74-106); Magnesium 2.2 mg/dL (1.6-2.6); Osmolality,Calculated 283 (275-295); Phosphorous 1.8 mg/dL (2.4-5.1); Potassium 4.1 mMol/L (3.4-5.1); Sodium 139 mMol/L (136-145); eGFR > 60 See Note
[2024-04-03] MEDS: INSULIN LISPRO (AdmeLOG) 1 UNIT/0.01 ML UNIT SC (11:55)
[2024-04-03] MEDS: SOD PHOS ADDITIVE 30 MMOL in SODIUM CHLORIDE 0.9% 500 ML 500 ML 62.5 MMOL IV (11:55)
--- NOTE | 2024-04-03 12:41 | ESPR_ITS ---
Documentation for date of: 04/03/24 Subjective Subjective Interval history: Ms Pickard is a 74-year-old darrell-speaking female with past medical history of diabetes mellitus, coronary artery disease and hypertension presented to [facility] on 04/01/24 with chief complaint of fever, lethargic and chest pain. Patient reported her symptoms started yesterday night she started feeling tired, lethargic, reported having fever and chills, denies any cough, headache. Son at bedside reported that he checked her temperature at home which was 101 F and he gave her Tylenol twice. She also complains of chest pain, describes it as pressure-like, reports she has ordered off chest pain at rest, follows up with [employer] lead Dr. 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 Otherwise patient denies any abdominal pain, nausea and vomiting. ED Course: ED Vitals: On presentation BP 94/64, P 83, RR 18, temp 97.4, O2 sat 98 on room air ED Labs: ED labs significant for WBC count 23.3, neutrophil 18.4, sodium 133, GFR 48, glucose 264, lactate 5.8, troponin 1.675, BNP 1648, total protein 8.4, albumin 5.1 ED Imaging:Chest x-ray in ED shows findings most consistent with pneumonia in the left mid and lower lung zone, follow-up recommended to document clearing and exclude underlying pulmonary mass. EKG negative for any ST elevation ED Treatment: Patient was given 1 L sodium chloride bolus, tamiflu, ceftriaxone and azithromycin in ED. Medical Facilities Section Director Dr. Ludin Claros was consulted in ED, EKG and case reviewed, suspicion of type II NSTEMI in response to her infection and is recommending aggressive treatment of her infection and to hold off on heparin at this point. Patient admitted for acute respiratory distress secondary to pneumonia and NSTEMI Type II. Patient developed significant acidosis with serum bicarb of 14.5. Beta-hydroxybutyrate was more than 6.4 and VBG showed pH 7.3. Patient was then admitted to ICU for euglycemic DKA. Per cardio consult, patient has poor heart function with EF 35%. DKA protocol modified for slower rate of infusion, and D10-LR IVF was prepared by pharmacy instead of D5-LR. 04/04/2024: Patient seen and examined at bedside. Patient alert to sound, following commands appropriately. No signs of fluid overload, no crackles, trace pedal edema unchanged from yesterday. Anion gap closed on repeated labs, with bicarb greater than 20. Patient given 10 units Lantus subcu, transitioned off insulin drip and DKA protocol. Patient saturating well on room air. Patient stable for downgrade to telemetry. Exam Vital Signs Temp Pulse Resp BP Pulse Ox O2 Del Method O2 Flow Rate 98.7 F 102 H 25 H 117/67 96 Room Air 2 04/03/24 12:00 04/03/24 12:00 04/03/24 12:00 04/03/24 12:00 04/03/24 12:04/03/24 12:04/02/24 18:00 FiO2 40 04/02/24 07:37 Narrative Exam PE: Gen: Well-developed and well-nourished. HEENT: NCAT, PERRLA, EOMI, anicteric conjunctivae. Dry mucous membranes. CVS: normal S1 and S2. RRR. No M/R/G. Resp: CTA B/L. No rhonchi, rales, crackles or wheezing. Abd: soft, non-tender, non-distended. MSK: Good ROM in BUE & BLE. No rash. Trace bliateral lower extremity edema. Neuro: CN II-XII grossly intact. Strength 5/5 in BUE & BLE. Alert and oriented x3. Psych: appropriate mood and affect. Objective Labs 04/04/24 05:00 04/04/24 11:29 Labs: Laboratory Results - last 24 hr 04/02/24 04/02/24 04/02/24 12: 15:22 19:15 WBC RBC Hgb Hct MCV MCH MCHC RDW Std Deviation Plt Count Neut % (Auto) Lymph % (Auto) [place] % (Auto) Eos % (Auto) Baso % (Auto) Neut # (Auto) Lymph # (Auto) [place] # (Auto) Eos # (Auto) Baso # (Auto) Immature Gran # (Auto) Absolute Nucleated RBC Immature Gran % Nucleated RBC % VBG pH 7.30 L VBG pCO2 26 L VBG pO2 33 VBG O2 Sat (Amy) 58 L VBG Base Excess -12 L Sodium 135 L 135 L Potassium 4.2 3.6 D Chloride 103 106 Carbon Dioxide 11.8 L* 13.7 L* Anion Gap 20 H 15 BUN 19 18 Creatinine 1.0 1.0 Estim Creat Clear Calc 33.7 L 33.7 L eGFR 59 L 59 L BUN/Creatinine Ratio 19 18 Glucose 170 H 212 H Calculated Osmolality 276 278 Lactic Acid 1.5 Calcium 8.8 8.8 Corrected Calcium 8.9 9.0 Phosphorus 2.7 1.6 L Magnesium 2.2 2.1 Total Bilirubin AST ALT Alkaline Phosphatase Total Protein Albumin 3.9 3.8 Globulin Albumin/Globulin Ratio Beta-Hydroxybutyrate/Acetoacetate > 6.4 H 04/03/24 04/03/24 04/03/24 01:14 04:57 08:55 WBC 17.9 H RBC 3.48 L Hgb 9.6 L Hct 29.5 L MCV 85 MCH 27.6 MCHC 32.5 RDW Std Deviation 43.4 Plt Count 258 Neut % (Auto) 77 Lymph % (Auto) 13 [place] % (Auto) 10 Eos % (Auto) 0 Baso % (Auto) 0 Neut # (Auto) 13.7 H Lymph # (Auto) 2.4 [place] # (Auto) 1.7 H Eos # (Auto) 0.0 Baso # (Auto) 0.1 Immature Gran # (Auto) 0.06 H Absolute Nucleated RBC 0.00 Immature Gran % 0 Nucleated RBC % 0 VBG pH VBG pCO2 VBG pO2 VBG O2 Sat (Amy) VBG Base Excess Sodium 138 137 139 Potassium 4.0 3.8 4.1 Chloride 107 107 107 Carbon Dioxide 20.9 20.5 21.3 Anion Gap 10 10 11 BUN 17 16 16 Creatinine 1.0 0.9 0.9 Estim Creat Clear Calc 33.7 L 37.4 L 37.4 L eGFR 59 L > 60 > 60 BUN/Creatinine Ratio 17 18 18 Glucose 143 H D 184 H 180 H Calculated Osmolality 279 280 283 Lactic Acid Calcium 8.9 8.5 8.9 Corrected Calcium 9.1 8.5 9.0 Phosphorus 1.1 L 0.7 L* 1.8 L Magnesium 2.2 2.2 2.2 Total Bilirubin 0.4 AST 58 H ALT 31 Alkaline Phosphatase 62 Total Protein 6.6 Albumin 3.8 4.0 3.9 Globulin 2.6 Albumin/Globulin Ratio 1.5 Beta-Hydroxybutyrate/Acetoacetate ABG Interpretation ABG results: 04/02/24 12:29 VBG pH 7.30 L VBG pCO2 26 L VBG pO2 33 VBG Base Excess -12 L Quality Measures Quality Measures VTE prophylaxis Advance care planning discussed with:: patient and child Assessment & Plan Assessment Current Active Medications: Generic Name Dose Route Start Last Admin Trade Name Freq PRN Reason Stop Dose Admin Acetaminophen 650 mg 04/01/24 18:11 Acetaminophen 325 Mg Tablet PO 05/01/24 18:10 Q6H PRN Fever >100.5 Acetaminophen 650 mg 04/01/24 18:11 Acetaminophen 325 Mg Tablet PO 05/01/24 18:10 Q6H PRN PAIN SCALE 1-3 (mild Atorvastatin Calcium 40 mg 04/02/24 21:00 04/02/24 21:22 Atorvastatin Calcium 20 Mg Tablet PO 05/02/24 20:59 40 mg HS HUE Administration Azithromycin 500 mg 04/02/24 09:00 04/03/24 08:25 Azithromycin 250 Mg Tablet PO 04/09/24 08:59 500 mg QDAY HUE Administration Clopidogrel Bisulfate 75 mg 04/02/24 14:30 04/03/24 08:25 Clopidogrel Bisulfate 75 Mg Tablet PO 05/02/24 14:29 75 mg QDAY HUE Administration Dextrose 25 ml 04/03/24 08:38 Dextrose 50%-Water Inj 50 Ml Syringe IV 05/03/24 08:37 Q15MIN PRN BG 50-70 responsive npo pt Dextrose 50 ml 04/03/24 08:38 Dextrose 50%-Water Inj 50 Ml Syringe IV 05/03/24 08:37 Q15MIN PRN BG <50 OR BG <70 & pt unresponsive Docusate Sodium 100 mg 04/02/24 09:00 04/03/24 08:25 Docusate Sod 100 Mg Capsule PO 05/02/24 08:59 100 mg QDAY HUE Administration Protocol Glucagon 1 mg 04/01/24 19:16 Glucagon Inj 1 Mg Vial IM Q15MIN PRN BG <70, and no IV access Heparin Sodium (Porcine) 5,000 unit 04/01/24 22:00 04/03/24 05:10 Heparin Sod Inj 5000 Unit/Ml Vial SC 04/15/24 21:59 5,000 unit Q8HR HUE Administration Ceftriaxone Sodium/Dextrose 50 mls @ 100 mls/hr 04/02/24 09:00 04/03/24 08:25 Rocephin/D5w 1gm Iv Premix IV 04/09/24 08:59 100 mls/hr QDAY HUE Administration Potassium Chloride 10 meq in 100 mls @ 100 mls/hr 04/02/24 14:38 Kcl Ivpb IV 05/02/24 14:37 .Q1H PRN IF POTASSIUM LESS THAN 3.3 Magnesium Sulfate 2 gm in 50 mls @ 25 mls/hr 04/02/24 14:38 Magnesium Sulfate Ivpb IV 05/02/24 14:37 .Q2H PRN PER DKA PROTOCOL Insulin Human Regular 100 unit 100 mls @ 4.764 mls/hr 04/02/24 14:38 04/03/24 08:19 / IV Miscellaneous Supplies IV 05/02/24 14:37 0 unit/kg/hr .Q21H PRN 0 mls/hr PER PROTOCOL Titration Protocol 0.1 UNIT/KG/HR Potassium Chloride 10 meq in 100 mls @ 50 mls/hr 04/02/24 14:38 Kcl Ivpb IV 05/02/24 14:37 PRN PRN K LEVEL 3.3 to 5.3 & BG > 200 Potassium Phosphate 15 mmol in 250 mls @ 62.5 mls/hr 04/02/24 14:38 04/03/24 06:52 Pot Phos 15 Mmol In Ns 250 Ml IV 05/02/24 14:37 62.5 mls/hr PRN PRN Administration Phosphate <= 1mg/dL Sodium Phosphate 15 mmol/ 255 mls @ 62.5 mls/hr 04/02/24 14:38 Sodium Chloride IV 05/02/24 14:37 .Q4H5M PRN Phosphate <= 1mg/dL and K> than 5.3 Potassium Chloride 20 meq/ 1,010 mls @ 75 mls/hr 04/02/24 14:56 04/03/24 00:00 Lactated Ringer's IV 05/02/24 14:55 0 mls/hr .[id number] PRN Infusion K LEVEL 3.3 TO 5.3mM/L Potassium Chloride 40 meq/ 1,020 mls @ 75 mls/hr 04/02/24 14:56 Lactated Ringer's IV 05/02/24 14:55 .[id number] PRN K LEVEL < 3.3 mM/L Potassium Chloride 40 meq/ 1,020 mls @ 75 mls/hr 04/02/24 14:56 Dextrose/Lactated Ringer's IV 05/02/24 14:55 .[id number] PRN K LEVEL < 3.3mM/L Potassium Cl/Dextrose/Lact Ringer's 20 meq in 1,000 mls @ 75 mls/hr 04/02/24 14:56 Kcl 20 Meq/L In D5-Lr IV 05/02/24 14:55 .[id number] PRN K LEVEL 3.3 TO 5.3 mM/L Dextrose/Lactated Ringer's 1,000 mls @ 75 mls/hr 04/02/24 14:56 D5-Lr IV 05/02/24 14:55 .[id number] PRN PER PROTOCOL Lactated Ringer's 1,000 mls @ 75 mls/hr 04/02/24 14:56 Lactated Ringers IV 05/02/24 14:55 .[id number] PRN PER PROTOCOL Sodium Phosphate 30 mmol/ 510 mls @ 62.5 mls/hr 04/03/24 07:01 04/03/24 11:55 Sodium Chloride IV 04/03/24 15:10 62.5 mls/hr X1 ONE Administration Insulin Glargine 10 unit 04/04/24 09:00 Insulin Glargine (Lantus) 5 Unit/0.05 Ml (Per 5 Units) SC 05/04/24 08:59 QDAY HUE Insulin Human Lispro 0 unit 04/03/24 11:30 04/03/24 11:55 Insulin Lispro (Admelog) 1 Unit/0.01 Ml Unit SC 05/03/24 11:29 2 unit ACHS HUE Administration Protocol Mirtazapine 15 mg 04/03/24 21:00 Mirtazapine 15 Mg Tablet PO 05/03/24 08:59 HS HUE Ondansetron HCl 4 mg 04/01/24 18:11 04/02/24 10:50 Ondansetron Inj 2 Mg/Ml Inj 2 Ml IV 05/01/24 18:10 4 mg Q6H PRN Administration NAUSEA OR VOMITING Protocol Ranolazine 1,000 mg 04/02/24 21:00 04/03/24 08:25 Ranolazine 500 Mg Octavia (Non Formulary) PO 05/02/24 20:59 1,000 mg BID HUE Administration Sodium Bicarbonate 50 ml 04/02/24 14:38 Sodium Bicarb Inj 8.4% Syr 50 Ml Syringe IV 05/02/24 14:37 PRN PRN For ph <= to 7.0 Plan Ms Pickard is a 74-year-old darrell-speaking female with past medical history of diabetes mellitus, coronary artery disease and hypertension presented to [facility] on 04/01/24 with chief complaint of fever, lethargic and chest pain, later developed euglycemic DKA, and was upgraded to ICU for management. Neuro: #No active issues Cardio: #NSTEMI type II #Coronary artery disease Patient complained of pressure-like chest pain on and off, has on and off pain at rest Patient follows up with Dr. Arteaga outpatient reports taking isosorbide mononitrate and ranolazine at home Cardiac cath done in April significant for triple vessel disease Troponin on presentation 1.675, EKG negative for ST elevation Dr. Ludin Claros was consulted in ED, EKG and case reviewed, suspicion of type II NSTEMI in response to her infection Cardiology recommended aggressive treatment of her infection and to hold off on heparin Plan: -Will continue home aspirin, Plavix, statin -Cardiology consulted, appreciate recommendations -Cardiac monitoring #CHF Per cardiology consult, patient is heart failure with reduced ejection fraction, EF 35%. Patient currently appears euvolemic, no crackles on auscultation of lungs, trace pedal edema, dry mucous membranes. Will provide fluids for DKA, but gentle hydration. -Strict I's and O's -Daily weights -Cardiac diet Pulm: #AHRF secondary to #CAP Patient complained of fever, lethargy, tiredness since yesterday, reported having chills denies any cough, had temperature of 101 relieved with Tylenol. Chest x-ray showed consolidation left mid and lower lung zone, follow-up recommended to document clearing and exclude underlying pulmonary mass. WBC count 23.3 in ED on admission. Bedside flu and COVID-negative. Elevated lactate 5.8 on admission. Patient was given 1 L sodium chloride bolus, tamiflu, ceftriaxone and azithromycin in ED. CURB-65 Score 1 Patient on supplemental O2 1 L/min via nasal cannula, was able to be weaned off. Plan: -Continue ceftriaxone and azithromycin (04/01-) -Supplemental oxygen as needed -Tylenol as needed for fever -MRSA nasal screen -Follow-up RSV, Legionella -Sputum culture/Gram stain pending, follow-up -Follow-up blood culture GI: #No active issues Renal: #Acute kidney injury, resolved Prerenal likely, BUN 17, creatinine 1.2, GFR 48 on admission. Baseline GFR more than 60. Patient received 2L bolus NS Kidney function improved following day. Plan: -Renally dose medication -Avoid nephrotoxic agents -daily labs Endo: #Euglycemic DKA, resolved #Type 2 diabetes Patient's history of diabetes. A1c 7% as of 04/02/2024. After patient was admitted to telemetry, developed anion gap metabolic acidosis. Anion gap 20, serum bicarb 11.8, lactic acid 1.5. Beta hydroxybutyrate greater than 6.4. VBG showed pH 7.3, pCO2 26. Patient was upgraded to ICU for management of DKA requiring insulin drip. Reduced rate of hydration due to patient history of CHF. Patient received modified DKA protocol: Rate of IVF 75 mL/hour. D5 LR replaced with D10 LR. DKA resolved with close anion gap and normal bicarbonate on repeated labs. Patient given 10 units Lantus and and transitioned off insulin drip. -ISS -Lantus 10 units subcu daily -Downgrade to telemetry -Continue to monitor and replete electrolytes Heme: #Anemia Patient has mild anemia with hemoglobin 10.3. Appeared after patient received 2 L normal saline. No signs of bleeding. -Monitor #Leukocytosis Patient has leukocytosis with WBC greater than 20,000, due to pneumonia. -Treat underlying infection -Monitor ID: #Pneumonia Patient has consolidations in left lung indicating pneumonia. Patient presented with fevers and leukocytosis, developed shortness of breath and hypoxia requiring supplemental O2. -Antibiotics: Ceftriaxone and azithromycin Skin/MSK: #No active issues ICU Health maintenance: Mechanical ventilation: No Sedation: No Diet: NPO DVT ppx: Heparin GI ppx: No Fournier: No IV lines: PIVs Central line: No Arterial line: No Code status: Full Code Plan of care discussed with attending Dr. Cuevas. Mani Dimas MD PGY-1 Attending Provider Attestation/Addendum Patient seen and examined with above resident, Mani Dimas MD. I agree with the findings, assessment, and plan of care as documented separately differences below. Patient with resolution of her underlying DKA. Maintained on empiric antibiotics for community-acquired pneumonia still likely precipitant along with non-ST elevation ME. No cardiac intervention planned at this point. Patient will continue on empiric antibiotic course. Patient transitioned to subcutaneous regimen for above insulin and will be downgraded back to the medicine team for ongoing management and optimization prior to her discharge in coming days. Total critical care time: I personally spent 30 minutes for review of physiologic parameters, directing plan of care throughout the day, coordination of care including transfer to medicine service and other subspecialties. This is exclusive of time spent teaching housestaff or performing separate billable procedures. Patient continues require critical care services for diabetic ketoacidosis with close and frequent monitoring already billable in the intensive care setting. Patient remains at high risk for morbidity and mortality associated with underlying comorbid processes.
--- NOTE | 2024-04-03 12:47 | PC.SS ---
Update: Plan is to downgrade the patient from ICU.
[2024-04-03 14:00] LABS: Albumin, Serum 3.9 gm/dL (3.4-4.8); Anion Gap 13 (7-16); BUN/Creatinine Ratio 19 Ratio (12-20); Blood Urea Nitrogen 17 mg/dL (9-23); Calcium (Corrected) 9.1 mg/dL (8.5-10.1); Carbon Dioxide 18.7 mMol/L (20.0-31.0); Chloride 108 mMol/L (98-107); Creatinine (Component) 0.9 mg/dL (0.6-1.3); Estimated Creatinine Clearance 37.4 mL/min (>60); Glucose 230 mg/dL (74-106); Magnesium 2.3 mg/dL (1.6-2.6); Osmolality,Calculated 287 (275-295); Phosphorous 3.3 mg/dL (2.4-5.1); Sodium 140 mMol/L (136-145); eGFR > 60 See Note
[2024-04-03] MEDS: INSULIN GLARGINE (Lantus) 5 UNIT/0.05 ML (PER 5 UNITS) 4 UNIT SC (15:29)
[2024-04-03] MEDS: INSULIN LISPRO (AdmeLOG) 1 UNIT/0.01 ML UNIT 4 UNIT SC (15:29)
[2024-04-03 18:13] LABS: Anion Gap 11 (7-16); BUN/Creatinine Ratio 18 Ratio (12-20); Blood Urea Nitrogen 16 mg/dL (9-23); Calcium 8.4 mg/dL (8.3-10.6); Carbon Dioxide 21.6 mMol/L (20.0-31.0); Chloride 109 mMol/L (98-107); Creatinine (Component) 0.9 mg/dL (0.6-1.3); Estimated Creatinine Clearance 37.4 mL/min (>60); Glucose 109 mg/dL (74-106); Osmolality,Calculated 285 (275-295); Potassium 3.3 mMol/L (3.4-5.1); Sodium 142 mMol/L (136-145); eGFR > 60 See Note
[2024-04-03] MEDS: ATORVASTATIN CALCIUM 20 MG TABLET 40 MG PO (21:37)
[2024-04-04] VITALS (12 sets, daily range): BP systolic 93–125; BP diastolic 52–71; PULSE 87–100; RESP 12–97; TEMP 36.6–37; O2SAT 94–96; BMI 21.9
--- NOTE | 2024-04-04 01:20 | ESPR_ITS ---
RE: GIACOMO COWART : 1950 DATE OF SERVICE: 04/03/2024 SUBJECTIVE: The patient is doing fairly well now. She is transferred out of ICU back to telemetry. She went into ICU yesterday with _ acidosis, now acidosis is corrected. Blood sugar is improved. She is back on telemetry, not having chest pain, shortness of breath. Echocardiogram showed ejection fraction 30%, interval old myocardial infarction and moderate to severe LV dysfunction. Today, clinically she is better, but her white count is still elevated at 17.9, hemoglobin 9.6. Chemistry panel shows the creatinine level is normal. The BUN is normal. Clinically, she is not having_ chest pain. No acute decompensation. OBJECTIVE: General: Blood pressure 130/80. Pulse rate is 94. Respirations 16, temperature normal. Neck: Supple. No JVD. Lungs: Decreased breath sounds. No rales. Heart: S1, S2 regular no gallops_. Abdomen: Thin and soft. Extremities: No edema. IMPRESSION: 1. Diabetic ketoacidosis. 2. Elevated troponin level possible type 2 myocardial infarction 3. Known history of multivessel CAD__ total occlusion OF LAD_ with severe left ventricular dysfunction, ischemic cardiomyopathy, ejection fraction 30%. Recommended continued medical management. No need for coronary angiogram. She already had angiogram earlier this year. We will send her to Dr. Rodríguez when he comes back from vacation. The patient probably will require ICD implantation, but this will be discussed later on. DT: 23:08:43 TT: 01:00:00 Ref: [id number] - TID: [id number] [facility]
[2024-04-04] MEDS: HEPARIN SOD INJ 5000 UNIT/ML VIAL SC ×3 (05:16→21:26)
[2024-04-04 05:43] LABS: Basophils % (Auto) 0 % (0-2.5); Eosinophils % (Auto) 0 % (0-10); Hematocrit 27.4 % (36.0-46.0); Hemoglobin 9.1 g/dL (12.0-16.0); Immature Granulocytes % (Auto) 0 % (0-0); Immature Granulocytes Auto 0.06 Thou/mm3 (0.00-0.00); Lymphocytes # (Auto) 2.6 Thou/mm3 (1.0-4.8); Lymphocytes % (Auto) 17 % (10-50); Mean Corpuscular HGB Conc 33.2 g/dl (31.0-37.0); Mean Corpuscular Hemoglobin 27.8 pg (25.0-35.0); Mean Corpuscular Volume 84 fL (80-100); Monocytes # (Auto) 1.5 Thou/mm3 (0.0-0.8); Monocytes % (Auto) 10 % (0-12); Neutrophils # (Auto) 11.4 Thou/mm3 (1.8-7.7); Neutrophils % (Auto) 73 % (37-80); Nucleated Red Blood Cell % 0 /100 WBC (0); Platelet Count 234 Thou/mm3 (140-440); RDW Standard Deviation 43.8 fL (36.4-46.3); Red Blood Count 3.27 Miln/mm3 (4.00-5.20); White Blood Count 15.6 Thou/mm3 (3.6-11.0)
[2024-04-04 06:55] LABS: Alanine Aminotransferase 42 U/L (10-49); Albumin, Serum 3.8 gm/dL (3.4-4.8); Albumin/Globulin Ratio 1.5 (1.2-2.2); Alkaline Phosphatase 71 U/L (46-116); Anion Gap 15 (7-16); Aspartate Amino Transferase 67 U/L (0-34); BUN/Creatinine Ratio 23 Ratio (12-20); Bilirubin,Total 0.4 mg/dL (0.3-1.2); Blood Urea Nitrogen 18 mg/dL (9-23); Calcium 8.4 mg/dL (8.3-10.6); Calcium (Corrected) 8.6 mg/dL (8.5-10.1); Carbon Dioxide 18.4 mMol/L (20.0-31.0); Chloride 108 mMol/L (98-107); Creatinine (Component) 0.8 mg/dL (0.6-1.3); Estimated Creatinine Clearance 42.1 mL/min (>60); Globulin 2.6 gm/dL (2.3-3.5); Glucose 130 mg/dL (74-106); Magnesium 2.2 mg/dL (1.6-2.6); Osmolality,Calculated 285 (275-295); Phosphorous 2.8 mg/dL (2.4-5.1); Potassium 3.6 mMol/L (3.4-5.1); Sodium 141 mMol/L (136-145); Total Protein 6.4 gm/dL (5.7-8.2); eGFR > 60 See Note
[2024-04-04] MEDS: INSULIN LISPRO (AdmeLOG) 1 UNIT/0.01 ML UNIT SC ×2 (07:55→21:39)
[2024-04-04] MEDS: RANOLAZINE 500 MG TABER (NON FORMULARY) 1000 MG PO ×2 (09:15→21:19)
[2024-04-04] MEDS: cefTRIAXone/D5w 1gm IV premix 50 ML IV (09:16)
[2024-04-04] MEDS: INSULIN GLARGINE (Lantus) 5 UNIT/0.05 ML (PER 5 UNITS) 14 UNIT SC (09:16)
[2024-04-04] MEDS: CLOPIDOGREL BISULFATE 75 MG TABLET PO (09:17)
[2024-04-04] MEDS: AZITHROMYCIN 250 MG TABLET 500 MG PO (09:17)
[2024-04-04] MEDS: DOCUSATE SOD 100 MG CAPSULE PO (09:18)
[2024-04-04 11:59] LABS: Alanine Aminotransferase 53 U/L (10-49); Albumin, Serum 3.9 gm/dL (3.4-4.8); Albumin/Globulin Ratio 1.5 (1.2-2.2); Alkaline Phosphatase 72 U/L (46-116); Anion Gap 13 (7-16); Aspartate Amino Transferase 53 U/L (0-34); BUN/Creatinine Ratio 21 Ratio (12-20); Bilirubin,Total 0.3 mg/dL (0.3-1.2); Blood Urea Nitrogen 19 mg/dL (9-23); Calcium 8.4 mg/dL (8.3-10.6); Calcium (Corrected) 8.5 mg/dL (8.5-10.1); Carbon Dioxide 19.1 mMol/L (20.0-31.0); Chloride 106 mMol/L (98-107); Creatinine (Component) 0.9 mg/dL (0.6-1.3); Estimated Creatinine Clearance 37.4 mL/min (>60); Globulin 2.6 gm/dL (2.3-3.5); Glucose 132 mg/dL (74-106); Osmolality,Calculated 279 (275-295); Phosphorous 2.4 mg/dL (2.4-5.1); Potassium 3.1 mMol/L (3.4-5.1); Sodium 138 mMol/L (136-145); Total Protein 6.5 gm/dL (5.7-8.2); eGFR > 60 See Note
--- NOTE | 2024-04-04 12:08 | ESPR_ITS ---
<Statement entered by Rajat Longoria MD - 04/10/24 07:09> I reviewed above note and agree with findings and plans. I have also personally examined the patient with medicine team and went over assessment and plan with medical team including editing internship and resident physician. Documentation for date of: 04/04/24 Subjective Subjective Interval history: Patient downgraded from ICU overnight. Seen and examined at bedside. Currently saturating well on room air. Will continue IV ceftriaxone and p.o. azithromycin. Bicarb 18.4 this morning glucose 130. Patient is on subcutaneous insulin. Will repeat CMP later today. Will continue to monitor patient. Exam Vital Signs Temp Pulse Resp BP Pulse Ox O2 Del Method O2 Flow Rate 97.8 F 95 21 H 107/60 95 Room Air 2 04/04/24 08:00 04/04/24 09:15 04/04/24 08:00 04/04/24 09:15 04/04/24 08:00 04/04/24 08:00 04/02/24 18:00 FiO2 40 04/02/24 07:37 Narrative Exam Physical Exam General: Awake and in no acute distress. Conversational and non-toxic appearing. HEENT: Normocephalic, atraumatic, mucous membranes moist. Heart: Regular rate and rhythm, no murmurs. Lungs: Clear to auscultation with no wheezing or crackles. Abdomen: Soft, nondistended, nontender, positive bowel sounds. ?No guarding or rebound tenderness. Neurologic: Alert and oriented x3, no gross neurological deficit, and patient able to move all 4 extremities. Extremities: No edema. Skin: No rash or ecchymoses. Objective Labs 04/04/24 05:00 04/04/24 11:29 Labs: Laboratory Results - last 24 hr 04/03/24 04/03/24 04/03/24 13:08 17:29 17:29 WBC RBC Hgb Hct MCV MCH MCHC RDW Std Deviation Plt Count Neut % (Auto) Lymph % (Auto) [place] % (Auto) Eos % (Auto) Baso % (Auto) Neut # (Auto) Lymph # (Auto) [place] # (Auto) Eos # (Auto) Baso # (Auto) Immature Gran # (Auto) Absolute Nucleated RBC Immature Gran % Nucleated RBC % Sodium 140 Cancelled 142 Potassium 4.0 Cancelled Chloride 108 H Carbon Dioxide 18.7 L Anion Gap 13 BUN 17 Creatinine 0.9 Estim Creat Clear Calc 37.4 L eGFR > 60 BUN/Creatinine Ratio 19 Glucose 230 H D Calculated Osmolality 287 Calcium 9.0 Corrected Calcium 9.1 Phosphorus 3.3 Magnesium 2.3 Total Bilirubin AST ALT Alkaline Phosphatase Total Protein Albumin 3.9 Globulin Albumin/Globulin Ratio 04/03/24 04/03/24 04/03/24 17:29 17:29 17:29 WBC RBC Hgb Hct MCV MCH MCHC RDW Std Deviation Plt Count Neut % (Auto) Lymph % (Auto) [place] % (Auto) Eos % (Auto) Baso % (Auto) Neut # (Auto) Lymph # (Auto) [place] # (Auto) Eos # (Auto) Baso # (Auto) Immature Gran # (Auto) Absolute Nucleated RBC Immature Gran % Nucleated RBC % Sodium Potassium 3.3 L D Chloride Cancelled 109 H Carbon Dioxide Cancelled 21.6 Anion Gap Cancelled BUN Creatinine Estim Creat Clear Calc eGFR BUN/Creatinine Ratio Glucose Calculated Osmolality Calcium Corrected Calcium Phosphorus Magnesium Total Bilirubin AST ALT Alkaline Phosphatase Total Protein Albumin Globulin Albumin/Globulin Ratio 04/03/24 04/03/24 04/03/24 17:29 17:29 17:29 WBC RBC Hgb Hct MCV MCH MCHC RDW Std Deviation Plt Count Neut % (Auto) Lymph % (Auto) [place] % (Auto) Eos % (Auto) Baso % (Auto) Neut # (Auto) Lymph # (Auto) [place] # (Auto) Eos # (Auto) Baso # (Auto) Immature Gran # (Auto) Absolute Nucleated RBC Immature Gran % Nucleated RBC % Sodium Potassium Chloride Carbon Dioxide Anion Gap 11 BUN Cancelled 16 Creatinine Cancelled 0.9 Estim Creat Clear Calc Cancelled eGFR BUN/Creatinine Ratio Glucose Calculated Osmolality Calcium Corrected Calcium Phosphorus Magnesium Total Bilirubin AST ALT Alkaline Phosphatase Total Protein Albumin Globulin Albumin/Globulin Ratio 04/03/24 04/03/24 04/03/24 17:29 17:29 17:29 WBC RBC Hgb Hct MCV MCH MCHC RDW Std Deviation Plt Count Neut % (Auto) Lymph % (Auto) [place] % (Auto) Eos % (Auto) Baso % (Auto) Neut # (Auto) Lymph # (Auto) [place] # (Auto) Eos # (Auto) Baso # (Auto) Immature Gran # (Auto) Absolute Nucleated RBC Immature Gran % Nucleated RBC % Sodium Potassium Chloride Carbon Dioxide Anion Gap BUN Creatinine Estim Creat Clear Calc 37.4 L eGFR Cancelled > 60 BUN/Creatinine Ratio Cancelled 18 Glucose Cancelled Calculated Osmolality Calcium Corrected Calcium Phosphorus Magnesium Total Bilirubin AST ALT Alkaline Phosphatase Total Protein Albumin Globulin Albumin/Globulin Ratio 04/03/24 04/03/24 04/03/24 17:29 17:29 17:29 WBC RBC Hgb Hct MCV MCH MCHC RDW Std Deviation Plt Count Neut % (Auto) Lymph % (Auto) [place] % (Auto) Eos % (Auto) Baso % (Auto) Neut # (Auto) Lymph # (Auto) [place] # (Auto) Eos # (Auto) Baso # (Auto) Immature Gran # (Auto) Absolute Nucleated RBC Immature Gran % Nucleated RBC % Sodium Potassium Chloride Carbon Dioxide Anion Gap BUN Creatinine Estim Creat Clear Calc eGFR BUN/Creatinine Ratio Glucose 109 H D Calculated Osmolality Cancelled 285 Calcium Cancelled 8.4 Corrected Calcium Cancelled Phosphorus Cancelled Magnesium Cancelled Total Bilirubin AST ALT Alkaline Phosphatase Total Protein Albumin Cancelled Globulin Albumin/Globulin Ratio 04/04/24 04/04/24 04/04/24 05:00 05:04 11:29 WBC 15.6 H RBC 3.27 L Hgb 9.1 L Hct 27.4 L MCV 84 MCH 27.8 MCHC 33.2 RDW Std Deviation 43.8 Plt Count 234 Neut % (Auto) 73 Lymph % (Auto) 17 [place] % (Auto) 10 Eos % (Auto) 0 Baso % (Auto) 0 Neut # (Auto) 11.4 H Lymph # (Auto) 2.6 [place] # (Auto) 1.5 H Eos # (Auto) 0.0 Baso # (Auto) 0.0 Immature Gran # (Auto) 0.06 H Absolute Nucleated RBC 0.00 Immature Gran % 0 Nucleated RBC % 0 Sodium 141 138 Potassium 3.6 3.1 L D Chloride 108 H 106 Carbon Dioxide 18.4 L 19.1 L Anion Gap 15 13 BUN 18 19 Creatinine 0.8 0.9 Estim Creat Clear Calc 42.1 L 37.4 L eGFR > 60 > 60 BUN/Creatinine Ratio 23 H 21 H Glucose 130 H 132 H Calculated Osmolality 285 279 Calcium 8.4 8.4 Corrected Calcium 8.6 8.5 Phosphorus 2.8 2.4 Magnesium 2.2 Total Bilirubin 0.4 0.3 AST 67 H 53 H ALT 42 53 H Alkaline Phosphatase 71 72 Total Protein 6.4 6.5 Albumin 3.8 3.9 Globulin 2.6 2.6 Albumin/Globulin Ratio 1.5 1.5 ABG Interpretation ABG results: 04/02/24 12:29 VBG pH 7.30 L VBG pCO2 26 L VBG pO2 33 VBG Base Excess -12 L Quality Measures Quality Measures VTE prophylaxis Advance care planning discussed with:: patient Assessment & Plan Assessment Current Active Medications: Generic Name Dose Route Start Last Admin Trade Name Diaz PRN Reason Stop Dose Admin Acetaminophen 650 mg 04/01/24 18:11 Acetaminophen 325 Mg Tablet PO 05/01/24 18:10 Q6H PRN Fever >100.5 Acetaminophen 650 mg 04/01/24 18:11 Acetaminophen 325 Mg Tablet PO 05/01/24 18:10 Q6H PRN PAIN SCALE 1-3 (mild Atorvastatin Calcium 40 mg 04/02/24 21:00 04/03/24 21:37 Atorvastatin Calcium 20 Mg Tablet PO 05/02/24 20:59 40 mg HS HUE Administration Azithromycin 500 mg 04/02/24 09:00 04/04/24 09:17 Azithromycin 250 Mg Tablet PO 04/09/24 08:59 500 mg QDAY HUE Administration Clopidogrel Bisulfate 75 mg 04/02/24 14:30 04/04/24 09:17 Clopidogrel Bisulfate 75 Mg Tablet PO 05/02/24 14:29 75 mg QDAY HUE Administration Dextrose 25 ml 04/03/24 08:38 Dextrose 50%-Water Inj 50 Ml Syringe IV 05/03/24 08:37 Q15MIN PRN BG 50-70 responsive npo pt Dextrose 50 ml 04/03/24 08:38 Dextrose 50%-Water Inj 50 Ml Syringe IV 05/03/24 08:37 Q15MIN PRN BG <50 OR BG <70 & pt unresponsive Docusate Sodium 100 mg 04/02/24 09:00 04/04/24 09:18 Docusate Sod 100 Mg Capsule PO 05/02/24 08:59 100 mg QDAY HUE Administration Protocol Glucagon 1 mg 04/01/24 19:16 Glucagon Inj 1 Mg Vial IM Q15MIN PRN BG <70, and no IV access Heparin Sodium (Porcine) 5,000 unit 04/01/24 22:00 04/04/24 05:16 Heparin Sod Inj 5000 Unit/Ml Vial SC 04/15/24 21:59 5,000 unit Q8HR HUE Administration Ceftriaxone Sodium/Dextrose 50 mls @ 100 mls/hr 04/02/24 09:00 04/04/24 09:16 Rocephin/D5w 1gm Iv Premix IV 04/09/24 08:59 100 mls/hr QDAY HUE Administration Insulin Glargine 14 unit 04/04/24 09:00 04/04/24 09:16 Insulin Glargine (Lantus) 5 Unit/0.05 Ml (Per 5 Units) SC 05/04/24 08:59 14 unit QDAY HUE Administration Insulin Human Lispro 0 unit 04/03/24 17:00 04/04/24 11:57 Insulin Lispro (Admelog) 1 Unit/0.01 Ml Unit SC 05/03/24 16:59 Not Given ACHS HUE Protocol Mirtazapine 15 mg 04/03/24 21:00 04/03/24 21:37 Mirtazapine 15 Mg Tablet PO 05/03/24 08:59 15 mg HS HUE Administration Ondansetron HCl 4 mg 04/01/24 18:11 04/02/24 10:50 Ondansetron Inj 2 Mg/Ml Inj 2 Ml IV 05/01/24 18:10 4 mg Q6H PRN Administration NAUSEA OR VOMITING Protocol Ranolazine 1,000 mg 04/02/24 21:00 04/04/24 09:15 Ranolazine 500 Mg Octavia (Non Formulary) PO 05/02/24 20:59 1,000 mg BID HUE Administration Plan Summary: Ms Pickard is a 74-year-old darrell-speaking female with past medical history of diabetes mellitus, coronary artery disease and hypertension presented to [facility] on 04[facility]01[facility]24 with chief complaint of fever, lethargic and chest pain. Patient admitted for acute respiratory distress secondary to pneumonia and NSTEMI Type II. Patient's hospital course was complicated with euglycemic acidosis, patient was upgraded to ICU for insulin GGT, eventually downgraded to telemetry 04/04 overnight. Anticipate discharge in a.m. if CMP unremarkable. #Acute Hypoxic respiratory failure, resolved #Left lower lobe pneumonia #Community-acquired pneumonia, improving #Leukocytosis Patient complained of fever, lethargy, tiredness since yesterday, reported having chills denies any cough, had temperature of 101 relieved with Tylenol. Chest x-ray showed findings most consistent with pneumonia in the left mid and lower lung zone, follow-up recommended to document clearing and exclude underlying pulmonary mass. WBC count 23.3 in ED on admission. Bedside flu and COVID-negative. Elevated lactate 5.8 on admission. Patient was given 1 L sodium chloride bolus, tamiflu, ceftriaxone and azithromycin in ED. CURB-65 Score 1 No WBC seen on sputum culture, blood culture and urine culture negative Plan: -Continue ceftriaxone and azithromycin (04/01- -Supplemental oxygen as needed -Tylenol as needed for fever -F/u MRSA nasal screen -Follow-up RSV, Legionella -F/u Sputum culture/Gram stain #Euglycemic DKA, resolved #Type 2 diabetes Patient's history of diabetes. A1c 7% as of 04/02/2024. After patient was admitted to telemetry, developed anion gap metabolic acidosis. Anion gap 20, serum bicarb 11.8, lactic acid 1.5. Beta hydroxybutyrate greater than 6.4. VBG showed pH 7.3, pCO2 26. Patient was upgraded to ICU for management of DKA requiring insulin drip. Patient received modified DKA protocol: Rate of IVF 75 mL/hour. D5 LR replaced with D10 LR. DKA resolved with close anion gap and normal bicarbonate on repeated labs on 04/03. 04/04-Bicarb 18.4 Plan: -Repeat CMP -Sliding scale insulin -Lantus 14 units subcut. daily -Fingerstick blood glucose ACHS -Hypoglycemia protocol in place #NSTEMI type II, likely demand ischemia #Hx of Coronary artery disease #Triple-vessel disease Patient complained of pressure-like chest pain on and off, has on and off pain at rest Patient follows up with Dr. Arteaga outpatient reports taking isosorbide mononitrate and ranolazine at home Cardiac cath done in April significant for triple vessel disease Troponin on presentation 1.675, EKG negative for ST elevation Dr. Ludin Claros was consulted in ED, EKG and case reviewed, suspicion of type II NSTEMI in response to her infection Cardiology recommended aggressive treatment of her infection and to hold off on heparin at this point. Troponin 1.6 -> 1.2 -> 1.9, will not continue to trend further Cardiac Cath and coronary angiogram (04/2023) show severe triple vessel disease 100% stenosis of LAD, 50% stenosis of mid and distal LCA, 99% stenosis of tiny caliber first obtuse marginal branch Sees Dr. Arteaga, recommended medical management Cardiology, Dr. Claros, does not recommend further intervention at this time Plan: ?Cardiology consulted, appreciate recommendations -Consider ICD placement outpatient with cardiology ?Resumed home aspirin, Plavix and ranolazine # Congestive heart failure, HFrEF EF 30% # Ischemic cardiomyopathy Patient currently appears euvolemic. ECHO Findings: Normal LV size with Severe hypokinesis anterior septal, apical septal segments LV EF 30% Normal RV size and function. Moderate MR. Mild TR. Mild AV sclerosis without stenosis. Plan: -Cardiology consulted, appreciate recommendations -Strict I's and O's -Daily weights -Cardiac diet #Acute kidney injury, resolved Prerenal likely, BUN 17, creatinine 1.2, GFR 48 on admission Baseline GFR more than 60. S/p 2L bolus Plan: -Follow renal panel in a.m. -Renally dose medication -Avoid nephrotoxic agents #Normocytic Normochromic Anemia Patient's hemoglobin is from 13.2->10.3->9.6->9.1 Patient received IV hydration. Plan: -Iron panel, ferritin in a.m. -B12, folate in a.m. -Reticulocyte count in a.m. -Follow CBC in a.m. #Hypertension -Blood pressure soft for now we will continue to hold antihypertensives #Health Maintenance Disposition: Telemetry DVT prophylaxis: Heparin GI prophylaxis: None at this time Diet: Carb consistent CODE STATUS: Full Case discussed with Attending Dr. Longoria. Ana Ji PGY1
[2024-04-04] MEDS: POTASSIUM CHLORIDE 20 mEq TABCR 40 MEQ PO (12:39)
--- NOTE | 2024-04-04 13:43 | PC.SS ---
SS spoke to patient's son, Lewis Pickard regarding her d/c plan. Pt is alert/oriented. Pt resides with . SonLewis confirmed patient's demographic and contact information is correct on her facesheet. Pt ambulates independently without assistance or DME. Pt is ok with all ADLs. SS provided sonLewis with options for d/c to home or SNF. Son's choice is for pt to return home with HH Services and does not have preference for HH. Son is also requesting [facility] information. SS spoke to Kaye from [facility] to confirm their fax number. sent fax and provided patient's sonLewis with [facility] phone number upon his request. Pt followed up with PCP, Dr. Ruiz in February, and her next appointment is Apr at 8:30am. Family will provide transportation home. DC Plan: Return home with HH Services Next of Kin: Lewis Pickard, son, phone# [phone] PCP: Adrian Ruiz and next appointment is 04-06-24 at 8:30am Address: Correct on facesheet Home Health: No preference
--- NOTE | 2024-04-04 16:56 | PC.NURSE ---
BP 94/52 retook 93/, Dr. Rizo notified
--- NOTE | 2024-04-04 20:52 | ESPR_ITS ---
RE: GIACOMO COWART : 1950 DATE OF SERVICE: 04/04/2024 SUBJECTIVE: The patient is doing reasonably well today. She is not having any shortness of breath or chest pain. Admitted to the hospital with DKA and also elevated troponin levels, appear to be type 2 troponin given the presence of multivessel CAD, not suitable for bypass surgery or revascularization, total occlusive LAD, multiple other vessels that are not suitable for revascularization. Echocardiogram showed ejection fraction in the 30% range. Clinically, she is not having any shortness of breath or chest pain. OBJECTIVE: General: Blood pressure is 107/60, pulse rate is 95, respirations 40, temperature normal, saturation on room air 95%. Neck: Supple. No JVD. Chest: Symmetrical. Lungs: Decreased breath sounds. No rales. Heart: S1, S2 regular. S4 gallop heard. Abdomen: Thin and soft. Extremities: No edema. Genitourinary/Rectal: Not performed. Neurologic: Normal. LABORATORY DATA: Lab data showed creatinine of 0.9, BUN 19, acidosis improved, and potassium is 3.1. White count is slightly high at 15.6. IMPRESSION: 1. Type 2 myocardial infarction, elevated troponin due to demand ischemia and multivessel coronary artery disease. 2. Ischemic cardiomyopathy severe left ventricular dysfunction, ejection fraction 30%, well-compensated heart failure. 3. Diabetic ketoacidosis. 4. Pneumonia. RECOMMENDATIONS: Continue antibiotic therapy, treatment of diabetes as well as cardiac status is stable, for now on medical management. Ejection fraction is low. Consideration for ICD implantation at a later date. DT: 17:55:30 TT: 20:16:00 Ref: [id number] - TID: [id number]
[2024-04-04] MEDS: ATORVASTATIN CALCIUM 20 MG TABLET 40 MG PO (21:21)
[2024-04-04] MEDS: MIRTAZAPINE 15 MG TABLET PO (21:22)
[2024-04-05] VITALS (9 sets, daily range): BP systolic 93–135; BP diastolic 62–75; PULSE 84–94; RESP 19–95; TEMP 36–36.6; O2SAT 95–99; BMI 22.8
[2024-04-05 05:01] LABS: Basophils % (Auto) 0 % (0-2.5); Eosinophils # (Auto) 0.1 Thou/mm3 (0.0-0.5); Eosinophils % (Auto) 1 % (0-10); Hematocrit 26.8 % (36.0-46.0); Hemoglobin 8.9 g/dL (12.0-16.0); Immature Granulocytes % (Auto) 0 % (0-0); Immature Granulocytes Auto 0.04 Thou/mm3 (0.00-0.00); Immature Reticulocyte Fraction 13.9 % (3.0-15.9); Lymphocytes # (Auto) 2.8 Thou/mm3 (1.0-4.8); Lymphocytes % (Auto) 26 % (10-50); Mean Corpuscular HGB Conc 33.2 g/dl (31.0-37.0); Mean Corpuscular Hemoglobin 27.7 pg (25.0-35.0); Mean Corpuscular Volume 84 fL (80-100); Monocytes % (Auto) 9 % (0-12); Neutrophils # (Auto) 7.1 Thou/mm3 (1.8-7.7); Neutrophils % (Auto) 64 % (37-80); Nucleated Red Blood Cell % 0 /100 WBC (0); Platelet Count 244 Thou/mm3 (140-440); RDW Standard Deviation 43.8 fL (36.4-46.3); Red Blood Count 3.21 Miln/mm3 (4.00-5.20); Reticulocyte % (Auto) 1.2 % (0.5-1.5); Reticulocyte Absolute Auto 37.2 Biln/L (25.0-75.0); Reticulocyte Hgb Content 23.4 pg (28.0-35.0)
[2024-04-05] MEDS: HEPARIN SOD INJ 5000 UNIT/ML VIAL SC ×3 (05:24→21:14)
[2024-04-05 05:33] LABS: Path Review Blood Smear Sent to Pathologist
[2024-04-05 05:37] LABS: Alanine Aminotransferase 62 U/L (10-49); Albumin, Serum 3.6 gm/dL (3.4-4.8); Albumin/Globulin Ratio 1.4 (1.2-2.2); Alkaline Phosphatase 65 U/L (46-116); Anion Gap 10 (7-16); Aspartate Amino Transferase 72 U/L (0-34); BUN/Creatinine Ratio 24 Ratio (12-20); Bilirubin,Total 0.4 mg/dL (0.3-1.2); Blood Urea Nitrogen 17 mg/dL (9-23); Calcium 8.4 mg/dL (8.3-10.6); Calcium (Corrected) 8.7 mg/dL (8.5-10.1); Carbon Dioxide 20.3 mMol/L (20.0-31.0); Chloride 108 mMol/L (98-107); Creatinine (Component) 0.7 mg/dL (0.6-1.3); Estimated Creatinine Clearance 48.1 mL/min (>60); Globulin 2.5 gm/dL (2.3-3.5); Glucose 91 mg/dL (74-106); LDH (Lactate Dehydrogenase) 317 U/L (120-246); Magnesium 2.1 mg/dL (1.6-2.6); Osmolality,Calculated 277 (275-295); Phosphorous 1.4 mg/dL (2.4-5.1); Potassium 3.8 mMol/L (3.4-5.1); Sodium 138 mMol/L (136-145); Total Protein 6.1 gm/dL (5.7-8.2); eGFR > 60 See Note
[2024-04-05 05:40] LABS: Folate > 24.00 ng/mL (>5.38); Vitamin B12 > 2000 pg/mL (211-911)
[2024-04-05 06:22] LABS: Ferritin 250 ng/mL (7.3-270.7); Total Iron Binding Capacity 189 mcg/dL (250-425)
[2024-04-05 06:32] LABS: Iron 13 mcg/dL (50-170); Percent Iron Saturation 6 % (20-55); Unsaturated Iron Binding 176 (225-295)
[2024-04-05] MEDS: AZITHROMYCIN 250 MG TABLET 500 MG PO (09:09)
[2024-04-05] MEDS: CLOPIDOGREL BISULFATE 75 MG TABLET PO (09:09)
[2024-04-05] MEDS: DOCUSATE SOD 100 MG CAPSULE PO (09:09)
[2024-04-05] MEDS: cefTRIAXone/D5w 1gm IV premix 50 ML IV (09:09)
[2024-04-05] MEDS: RANOLAZINE 500 MG TABER (NON FORMULARY) 1000 MG PO ×2 (09:13→21:04)
--- NOTE | 2024-04-05 11:09 | ESPR_ITS ---
<Statement entered by Rajat Longoria MD - 04/11/24 14:15> I reviewed above note and agree with findings and plans. I have also personally examined the patient with medicine team and went over assessment and plan with medical team including mba internship and resident physician. Documentation for date of: 04/05/24 Subjective Subjective Interval history: Patient seen and examined at bedside. Hemoglobin 8.9 today, still downtrending. Will monitor in a.m. Iron 13, TIBC 189, iron saturation 6%, unsaturated iron binding 176, ferritin 250 Suspicion of iron deficiency along with anemia of chronic disease Blood glucose has improved remarkably. Patient started on 8 units Lantus, will continue with sliding scale Phosphate 1.4 today, started on Neutra-Phos. Will continue to monitor patient Exam Vital Signs Temp Pulse Resp BP Pulse Ox O2 Del Method O2 Flow Rate 97.0 F 90 23 H 116/63 95 Room Air 2 04/05/24 08:00 04/05/24 09:13 04/05/24 08:00 04/05/24 09:13 04/05/24 08:00 04/05/24 08:00 04/02/24 18:00 FiO2 40 04/02/24 07:37 Narrative Exam Physical Exam General: Awake and in no acute distress. Conversational and non-toxic appearing. HEENT: Normocephalic, atraumatic, mucous membranes moist. Heart: Regular rate and rhythm, no murmurs. Lungs: Clear to auscultation with no wheezing or crackles. Abdomen: Soft, nondistended, nontender, positive bowel sounds. ?No guarding or rebound tenderness. Neurologic: Alert and oriented x3, no gross neurological deficit, and patient able to move all 4 extremities. Extremities: No edema. Skin: No rash or ecchymoses. Objective Labs 04/05/24 04:30 04/05/24 04:30 Labs: Laboratory Results - last 24 hr 04/04/24 04/05/24 11:29 04:30 WBC 11.0 RBC 3.21 L Hgb 8.9 L Hct 26.8 L MCV 84 MCH 27.7 MCHC 33.2 RDW Std Deviation 43.8 Plt Count 244 Neut % (Auto) 64 Lymph % (Auto) 26 Brown % (Auto) 9 Eos % (Auto) 1 Baso % (Auto) 0 Neut # (Auto) 7.1 Lymph # (Auto) 2.8 Brown # (Auto) 1.0 H Eos # (Auto) 0.1 Baso # (Auto) 0.0 Immature Gran # (Auto) 0.04 H Absolute Nucleated RBC 0.00 Immature Gran % 0 Nucleated RBC % 0 Smear Path Review Sent to Pathologist Retic Count (auto) 1.2 Absolute Retic 37.2 Immature Retic Fraction 13.9 Retic Hgb Content CHr 23.4 L Sodium 138 138 Potassium 3.1 L D 3.8 D Chloride 106 108 H Carbon Dioxide 19.1 L 20.3 Anion Gap 13 10 BUN 19 17 Creatinine 0.9 0.7 Estim Creat Clear Calc 37.4 L 48.1 L eGFR > 60 > 60 BUN/Creatinine Ratio 21 H 24 H Glucose 132 H 91 Calculated Osmolality 279 277 Calcium 8.4 8.4 Corrected Calcium 8.5 8.7 Phosphorus 2.4 1.4 L Magnesium 2.1 Iron 13 L TIBC 189 L Iron Saturation 6 L Unsat Iron Binding 176 L Ferritin 250 Total Bilirubin 0.3 0.4 AST 53 H 72 H ALT 53 H 62 H Alkaline Phosphatase 72 65 Lactate Dehydrogenase 317 H Total Protein 6.5 6.1 Albumin 3.9 3.6 Globulin 2.6 2.5 Albumin/Globulin Ratio 1.5 1.4 Vitamin B12 > 2000 H Folate > 24.00 ABG Interpretation ABG results: 04/02/24 12:29 VBG pH 7.30 L VBG pCO2 26 L VBG pO2 33 VBG Base Excess -12 L Quality Measures Quality Measures VTE prophylaxis Advance care planning discussed with:: patient Assessment & Plan Assessment Current Active Medications: Generic Name Dose Route Start Last Admin Trade Name Diaz PRN Reason Stop Dose Admin Acetaminophen 650 mg 04/01/24 18:11 Acetaminophen 325 Mg Tablet PO 05/01/24 18:10 Q6H PRN Fever >100.5 Acetaminophen 650 mg 04/01/24 18:11 Acetaminophen 325 Mg Tablet PO 05/01/24 18:10 Q6H PRN PAIN SCALE 1-3 (mild Atorvastatin Calcium 40 mg 04/02/24 21:00 04/04/24 21:21 Atorvastatin Calcium 20 Mg Tablet PO 05/02/24 20:59 40 mg HS HUE Administration Azithromycin 500 mg 04/02/24 09:00 04/05/24 09:09 Azithromycin 250 Mg Tablet PO 04/09/24 08:59 500 mg QDAY HUE Administration Clopidogrel Bisulfate 75 mg 04/02/24 14:30 04/05/24 09:09 Clopidogrel Bisulfate 75 Mg Tablet PO 05/02/24 14:29 75 mg QDAY HUE Administration Dextrose 25 ml 04/03/24 08:38 Dextrose 50%-Water Inj 50 Ml Syringe IV 05/03/24 08:37 Q15MIN PRN BG 50-70 responsive npo pt Dextrose 50 ml 04/03/24 08:38 Dextrose 50%-Water Inj 50 Ml Syringe IV 05/03/24 08:37 Q15MIN PRN BG <50 OR BG <70 & pt unresponsive Docusate Sodium 100 mg 04/02/24 09:00 04/05/24 09:09 Docusate Sod 100 Mg Capsule PO 05/02/24 08:59 100 mg QDAY HUE Administration Protocol Glucagon 1 mg 04/01/24 19:16 Glucagon Inj 1 Mg Vial IM Q15MIN PRN BG <70, and no IV access Heparin Sodium (Porcine) 5,000 unit 04/01/24 22:00 04/05/24 05:24 Heparin Sod Inj 5000 Unit/Ml Vial SC 04/15/24 21:59 5,000 unit Q8HR HUE Administration Ceftriaxone Sodium/Dextrose 50 mls @ 100 mls/hr 04/02/24 09:00 04/05/24 09:09 Rocephin/D5w 1gm Iv Premix IV 04/09/24 08:59 100 mls/hr QDAY HUE Administration Insulin Glargine 14 unit 04/04/24 09:00 04/05/24 09:12 Insulin Glargine (Lantus) 5 Unit/0.05 Ml (Per 5 Units) SC 05/04/24 08:59 Not Given QDAY HUE Insulin Human Lispro 0 unit 04/03/24 17:00 04/05/24 08:04 Insulin Lispro (Admelog) 1 Unit/0.01 Ml Unit SC 05/03/24 16:59 Not Given ACHS [facility] Protocol Mirtazapine 15 mg 04/03/24 21:00 04/04/24 21:22 Mirtazapine 15 Mg Tablet PO 05/03/24 08:59 15 mg HS HUE Administration Ondansetron HCl 4 mg 04/01/24 18:11 04/02/24 10:50 Ondansetron Inj 2 Mg/Ml Inj 2 Ml IV 05/01/24 18:10 4 mg Q6H PRN Administration NAUSEA OR VOMITING Protocol Ranolazine 1,000 mg 04/02/24 21:00 04/05/24 09:13 Ranolazine 500 Mg Octavia (Non Formulary) PO 05/02/24 20:59 1,000 mg BID HUE Administration Plan Summary: Ms Pickard is a 74-year-old darrell-speaking female with past medical history of diabetes mellitus, coronary artery disease and hypertension presented to [facility] on 04[facility]01[facility]24 with chief complaint of fever, lethargic and chest pain. Patient admitted for acute respiratory distress secondary to pneumonia and NSTEMI Type II. Patient's hospital course was complicated with euglycemic acidosis, patient was upgraded to ICU for insulin GGT, eventually downgraded to telemetry 04/04 overnight. Anticipate discharge in a.m. if CMP unremarkable. #Acute Hypoxic respiratory failure, resolved #Left lower lobe pneumonia #Community-acquired pneumonia, improving #Leukocytosis Patient complained of fever, lethargy, tiredness since yesterday, reported having chills denies any cough, had temperature of 101 relieved with Tylenol. Chest x-ray showed findings most consistent with pneumonia in the left mid and lower lung zone, follow-up recommended to document clearing and exclude underlying pulmonary mass. WBC count 23.3 in ED on admission. Bedside flu and COVID-negative. Elevated lactate 5.8 on admission. Patient was given 1 L sodium chloride bolus, tamiflu, ceftriaxone and azithromycin in ED. CURB-65 Score 1 No WBC seen on sputum culture, blood culture and urine culture negative Plan: -Continue ceftriaxone and azithromycin (04/01- -Supplemental oxygen as needed -Tylenol as needed for fever -F/u MRSA nasal screen -Follow-up RSV, Legionella -F/u Sputum culture/Gram stain #Euglycemic DKA, resolved #Type 2 diabetes Patient's history of diabetes. A1c 7% as of 04/02/2024. After patient was admitted to telemetry, developed anion gap metabolic acidosis. Anion gap 20, serum bicarb 11.8, lactic acid 1.5. Beta hydroxybutyrate greater than 6.4. VBG showed pH 7.3, pCO2 26. Patient was upgraded to ICU for management of DKA requiring insulin drip. Patient received modified DKA protocol: Rate of IVF 75 mL/hour. D5 LR replaced with D10 LR. DKA resolved with close anion gap and normal bicarbonate Plan: -Repeat CMP -Sliding scale insulin -Lantus 8 units subcut. daily -Fingerstick blood glucose ACHS -Hypoglycemia protocol in place #NSTEMI type II, likely demand ischemia #Hx of Coronary artery disease #Triple-vessel disease Patient complained of pressure-like chest pain on and off, has on and off pain at rest Patient follows up with Dr. Arteaga outpatient reports taking isosorbide mononitrate and ranolazine at home Cardiac cath done in April significant for triple vessel disease Troponin on presentation 1.675, EKG negative for ST elevation Dr. Ludin Claros was consulted in ED, EKG and case reviewed, suspicion of type II NSTEMI in response to her infection Cardiology recommended aggressive treatment of her infection and to hold off on heparin at this point. Troponin 1.6 -> 1.2 -> 1.9, will not continue to trend further Cardiac Cath and coronary angiogram (04/2023) show severe triple vessel disease 100% stenosis of LAD, 50% stenosis of mid and distal LCA, 99% stenosis of tiny caliber first obtuse marginal branch Sees Dr. Arteaga, recommended medical management Cardiology, Dr. Claros, does not recommend further intervention at this time Plan: ?Cardiology consulted, appreciate recommendations -Consider ICD placement outpatient with cardiology ?Resumed home aspirin, Plavix and ranolazine # Congestive heart failure, HFrEF EF 30% # Ischemic cardiomyopathy Patient currently appears euvolemic. ECHO Findings: Normal LV size with Severe hypokinesis anterior septal, apical septal segments LV EF 30% Normal RV size and function. Moderate MR. Mild TR. Mild AV sclerosis without stenosis. Plan: -Cardiology consulted, appreciate recommendations -Strict I's and O's -Daily weights -Cardiac diet #Acute kidney injury, resolved Prerenal likely, BUN 17, creatinine 1.2, GFR 48 on admission Baseline GFR more than 60. S/p 2L bolus Plan: -Follow renal panel in a.m. -Renally dose medication -Avoid nephrotoxic agents #Normocytic Normochromic Anemia Patient's hemoglobin is from 13.2->10.3->9.6->9.1->8.9 Patient received IV hydration. Iron 13, TIBC 189, iron saturation 6%, unsaturated iron binding 176, ferritin 250 LDH 317, reticulocyte count 1.2, B12 more than 2000, folate more than 24 Plan: -Follow PBF in a.m. -Follow CBC in a.m. #Hypertension -Blood pressure soft for now we will continue to hold antihypertensives #Health Maintenance Disposition: Telemetry DVT prophylaxis: Heparin GI prophylaxis: None at this time Diet: Carb consistent CODE STATUS: Full Case discussed with Attending Dr. Longoria. Ana Ji PGY1
[2024-04-05] MEDS: INSULIN LISPRO (AdmeLOG) 1 UNIT/0.01 ML UNIT SC ×2 (12:34→16:57)
[2024-04-05] MEDS: NAPH,KPH MBDB 1 PACKET (1.5 GM) PO ×2 (14:15→21:04)
--- NOTE | 2024-04-05 14:58 | PC.SS ---
Rounding Note: per Dr. White, patient remains in the hospital due to hemoglobin dropping; patient might discharge tomorrow.
[2024-04-05] MEDS: MIRTAZAPINE 15 MG TABLET PO (21:04)
[2024-04-05] MEDS: ATORVASTATIN CALCIUM 20 MG TABLET 40 MG PO (21:04)
[2024-04-06] VITALS: BP 116/56; PULSE 85; PULSE 86; RESP 24; TEMP 36; O2SAT 99
[2024-04-06 04:00] VITALS: BP 111/57; PULSE 79; PULSE 85; RESP 19; TEMP 36.7; O2SAT 97
[2024-04-06 04:52] VITALS: BMI 22.7
[2024-04-06 06:04] LABS: Basophils % (Auto) 0 % (0-2.5); Eosinophils # (Auto) 0.3 Thou/mm3 (0.0-0.5); Eosinophils % (Auto) 3 % (0-10); Hematocrit 27.8 % (36.0-46.0); Hemoglobin 9.2 g/dL (12.0-16.0); Immature Granulocytes % (Auto) 1 % (0-0); Immature Granulocytes Auto 0.06 Thou/mm3 (0.00-0.00); Lymphocytes # (Auto) 2.4 Thou/mm3 (1.0-4.8); Lymphocytes % (Auto) 23 % (10-50); Mean Corpuscular HGB Conc 33.1 g/dl (31.0-37.0); Mean Corpuscular Hemoglobin 27.8 pg (25.0-35.0); Mean Corpuscular Volume 84 fL (80-100); Monocytes # (Auto) 0.8 Thou/mm3 (0.0-0.8); Monocytes % (Auto) 8 % (0-12); Neutrophils # (Auto) 6.7 Thou/mm3 (1.8-7.7); Neutrophils % (Auto) 65 % (37-80); Nucleated Red Blood Cell % 0 /100 WBC (0); Platelet Count 300 Thou/mm3 (140-440); RDW Standard Deviation 42.8 fL (36.4-46.3); Red Blood Count 3.31 Miln/mm3 (4.00-5.20); White Blood Count 10.3 Thou/mm3 (3.6-11.0)
[2024-04-06 07:08] LABS: Alanine Aminotransferase 59 U/L (10-49); Albumin, Serum 3.4 gm/dL (3.4-4.8); Albumin/Globulin Ratio 1.5 (1.2-2.2); Alkaline Phosphatase 74 U/L (46-116); Anion Gap 10 (7-16); Aspartate Amino Transferase 48 U/L (0-34); BUN/Creatinine Ratio 24 Ratio (12-20); Bilirubin,Total 0.4 mg/dL (0.3-1.2); Blood Urea Nitrogen 17 mg/dL (9-23); Calcium 9.4 mg/dL (8.3-10.6); Calcium (Corrected) 9.9 mg/dL (8.5-10.1); Carbon Dioxide 23.9 mMol/L (20.0-31.0); Chloride 105 mMol/L (98-107); Creatinine (Component) 0.7 mg/dL (0.6-1.3); Estimated Creatinine Clearance 48.1 mL/min (>60); Globulin 2.2 gm/dL (2.3-3.5); Glucose 149 mg/dL (74-106); Magnesium 1.9 mg/dL (1.6-2.6); Osmolality,Calculated 282 (275-295); Potassium 3.5 mMol/L (3.4-5.1); Sodium 139 mMol/L (136-145); Total Protein 5.6 gm/dL (5.7-8.2); eGFR > 60 See Note
[2024-04-06 07:24] LABS: Phosphorous 2.7 mg/dL (2.4-5.1)
[2024-04-06 08:00] VITALS: BP 98/68; PULSE 78; PULSE 82; RESP 20; TEMP 36.7; O2SAT 96
[2024-04-06 09:36] VITALS: PULSE 96; RESP 100; RESP 20
--- NOTE | 2024-04-06 09:39 | PC.SS ---
SS follow up: met with patient to confirm d/c plan home. Informs family to transport home. Medicare rights reviewed with the patient.
[2024-04-06] MEDS: DOCUSATE SOD 100 MG CAPSULE PO (09:58)
[2024-04-06] MEDS: cefTRIAXone/D5w 1gm IV premix 50 ML IV (09:58)
[2024-04-06] MEDS: CLOPIDOGREL BISULFATE 75 MG TABLET PO (09:58)
[2024-04-06] MEDS: NAPH,KPH MBDB 1 PACKET (1.5 GM) PO (09:58)
[2024-04-06] MEDS: AZITHROMYCIN 250 MG TABLET 500 MG PO (09:58)
[2024-04-06] MEDS: INSULIN GLARGINE (Lantus) 5 UNIT/0.05 ML (PER 5 UNITS) 8 UNIT SC (09:59)
--- NOTE | 2024-04-06 11:36 | ESDS_ITS ---
<Statement entered by Rajat Longoria MD - 04/11/24 14:16> I reviewed above note and agree with findings and plans. I have also personally examined the patient with medicine team and went over assessment and plan with medical team including automotive internet sales manager and resident physician. Planned Discharge Date 04/06/24 DS: Providers Provider Date of admission: 04/01/24 18:10 Primary care physician: Adrian Ruiz MD Admitting Provider: Tin Boswell MD Attending Provider on Admission: Tin Boswell MD Consults: 04/01/24 17:56 Consult to Cardiology Stat Comment: Consulting Provider: Kristin Claros 04/02/24 14:39 Referral Registered Dietitian Routine Comment: 04/02/24 16:31 Consult to Oven Heater Helper Routine Comment: euglycemic DKA Consulting Provider: Jani Cuevas I 04/04/24 13:37 Referral Physical Therapy Routine Comment: Physician Instructions: Attending Provider on DC: Rajat Longoria MD Discharging Provider: Rajat Longoria MD Anticipated date of discharge: 04/06/24 DS: Diagnosis Problem List Completed Was Problem List Reviewed/Reconciled?: Yes Hospital Course Hospital Course Hospital course: Hospital Course: Ms Pickard is a 74-year-old darrell-speaking female with past medical history of diabetes mellitus, coronary artery disease and hypertension presented to [facility] on 04/01/24 with chief complaint of fever, lethargic and chest pain. Chest x-ray findings in ED showed pneumonia in left mid lower zone, influenza was negative in ED, patient had mild elevation of troponins. Patient admitted for acute respiratory distress secondary to pneumonia and NSTEMI Type II. Patient was started on IV antibiotics, supplemental oxygen, patient's oxygen requirements were significantly high, patient was placed on high flow oxygen, troponins trended down patient's chest pain resolved. Patient's hospital course was complicated by euglycemic acidosis and patient was upgraded to the ICU for insulin GGT and close monitoring. Eventually patient's gap closed, and patient was downgraded to telemetry. Cardiology was consulted, recommended outpatient follow-up with patient's adjunct faculty instructor. Patient condition improved remarkably with the progression of hospital course, she was weaned off of supplemental oxygen, saturating well on room air, further plan is to discharge patient home on iron tablets, patient to resume all other home medications other than linagliptin and follow-up closely with outpatient cardiology. Patient is stable for discharge Discharge Diagnosis: #Acute Hypoxic respiratory failure, resolved #Left lower lobe pneumonia #Community-acquired pneumonia #Leukocytosis #Euglycemic DKA, resolved #Type 2 diabetes #NSTEMI type II, likely demand ischemia #Hx of Coronary artery disease #Triple-vessel disease # Congestive heart failure, HFrEF EF 30% # Ischemic cardiomyopathy #Acute kidney injury, resolved #Normocytic Normochromic Anemia #Hypertension Case discussed with Attending Dr. Longoria. Ana Ji PGY1 Time Spent with Patient Time attestation: Total time spent providing and/or coordinating discharge services: More than 35 minutes Time spent: Greater than 30 minutes Exam Vital Signs Temp Pulse Resp BP Pulse Ox O2 Del Method O2 Flow Rate 98.1 F 96 20 98/68 96 Room Air 2 04/06/24 08:00 04/06/24 09:36 04/06/24 09:36 04/06/24 08:00 04/06/24 08:00 04/06/24 08:00 04/02/24 18:00 FiO2 40 04/02/24 07:37 Narrative Exam Physical Exam General: Awake and in no acute distress. Conversational and non-toxic appearing. HEENT: Normocephalic, atraumatic, mucous membranes moist. Heart: Regular rate and rhythm, no murmurs. Lungs: Clear to auscultation with no wheezing or crackles. Abdomen: Soft, nondistended, nontender, positive bowel sounds. ?No guarding or rebound tenderness. Neurologic: Alert and oriented x3, no gross neurological deficit, and patient able to move all 4 extremities. Extremities: No edema. Skin: No rash or ecchymoses. Discharge Plan Plan Patient Disposition: HOME (Self Care) Patient condition on transfer: Stable Care Plan Goals: Patient is recommended to follow-up with primary care physician in regards to hospitalization Patient is recommended to follow-up with primary care physician in regards to iron deficiency anemia likely requiring iron infusion Patient is also recommended to follow-up with PCP in regards to diabetic medications including linagliptin which may have been the source of DKA Patient also recommended to follow-up with cardiology Dr. Arteaga for possible ICD placement due to severe Ischemic cardiomyopathy and heart failure with reduced ejection fraction of 30% Prescriptions/Referrals Prescriptions/Med Rec: New ferrous sulfate 325 mg (65 mg iron) tablet,delayed release (DR/EC) 325 mg PO Q OTHER DAY Qty: 15 0RF Continued isosorbide mononitrate 30 mg tablet extended release 24 hr 1 tab PO QDAY Patient Comments: TAKE 1 TABLET BY MOUTH EVERY DAY metformin 1,000 mg tablet 1 tab PO BID Hold Instructions: Resume on 04/14/23. RESUME MEDICATION ON THIS DATE AT YOUR USUAL TIME Patient Comments: TAKE 1 TABLET BY MOUTH TWICE A DAY glyburide 5 mg Tablet 5 mg PO TID mirtazapine 15 mg Tablet 15 mg PO QDAY atorvastatin [Lipitor] 40 mg tablet 40 mg PO QDAY Patient Comments: TAKE 1 TABLET BY MOUTH EVERY DAY atenolol [Tenormin] 25 mg tablet 25 mg PO QDAY Patient Comments: TAKE 1 TABLET BY MOUTH EVERY DAY clopidogrel [Plavix] 75 mg tablet 75 mg PO QDAY Patient Comments: TAKE 1 TABLET BY MOUTH EVERY DAY ranolazine 500 mg Tablet Extended Release 12 Hr 500 mg PO BID Referrals: Kevin Arteaga MD [Physician] - Adrian Ruiz MD [Primary Care Provider] - Patient/Caregiver Discharge Instructions Discharge Activity: activity as tolerated Other Discharge Diet Instructions: Carbohydrate Consistent Cardiac Diet Education Materials: What Is Pneumonia?, Understanding Type 2 Diabetes Print Language: Panjabi (Darrell) Stand Alone Forms: [facility] Award Info., Patient Portal Info Letter Discharge Order Discharge Orders: Discharge (Routine); Ordered 04/06/24 Ordered By: Ana Ji Quality Discharge Quality Measures VTE prophylaxis
[2024-04-06 12:00] VITALS: BP 101/72; PULSE 75; PULSE 86; RESP 15; TEMP 36.9; O2SAT 99
[2024-04-07 06:38] LABS: Legionella Ag, EIA, Urine* NOT DETECTED
== END 2024-04-06 13:02 | disposition home or self-care (01) | DRG 193 ==
LOC: SERX 18:33 → SERHOLD 18:56 → S2NX 19:28 → S2SX 04-02 15:19 → S2NX 04-03 13:01
PROVIDERS: Student in an Organized Health Care Education/Training Program; Admitting Provider Internal Medicine; Emergency Provider Emergency Medicine; PCP Internal Medicine; Visit Provider Internal Medicine
DX: J15.9 Unspecified bacterial pneumonia (principal); E11.10 Type 2 diabetes mellitus with ketoacidosis without coma; I21.A1 Myocardial infarction type 2; J96.01 Acute respiratory failure with hypoxia; I13.0 Hypertensive heart and chronic kidney disease with heart failure and stage 1 through stage 4 chronic kidney disease, or unspecified chronic kidney disease; I50.22 Chronic systolic (congestive) heart failure; N17.9 Acute kidney failure, unspecified; I25.10 Atherosclerotic heart disease of native coronary artery without angina pectoris; N18.9 Chronic kidney disease, unspecified; E11.22 Type 2 diabetes mellitus with diabetic chronic kidney disease; E78.5 Hyperlipidemia, unspecified; Z79.84 Long term (current) use of oral hypoglycemic drugs; I25.5 Ischemic cardiomyopathy; D63.1 Anemia in chronic kidney disease
CPT/HCPCS: 36415; 71046; 80048; 80053; 80061; 80069; 81001; 82010; 82607; 82728; 82746; 82803; 83036; 83540; 83550; 83605; 83615; 83735; 83880; 84100; 84145; 84439; 84443; 84484; 85025; 85046; 87040; 87086; 87106; 87205; 87400; 87449; 87811; 89220; 93005; 93306; 94762; 96365; 96368; 97162; 99291; J0456; J0696; J1643; J1815; J2405; J3480; J7030; J7040; J7050; J7120; J7121; J7999; 94640; A9270; J1644

== ENCOUNTER → 2024-04-25 | Outpatient (CLI) | payer MEDICARE, MEDICAID, SELFPAY ==
[2024-04-25 10:18] LABS: Basophils % (Auto) 1 % (0-2.5); Eosinophils # (Auto) 0.1 Thou/mm3 (0.0-0.5); Eosinophils % (Auto) 2 % (0-10); Hematocrit 33.5 % (36.0-46.0); Hemoglobin 10.9 g/dL (12.0-16.0); Immature Granulocytes % (Auto) 0 % (0-0); Immature Granulocytes Auto 0.02 Thou/mm3 (0.00-0.00); Lymphocytes % (Auto) 44 % (10-50); Mean Corpuscular HGB Conc 32.5 g/dl (31.0-37.0); Mean Corpuscular Hemoglobin 27.8 pg (25.0-35.0); Mean Corpuscular Volume 86 fL (80-100); Monocytes # (Auto) 0.6 Thou/mm3 (0.0-0.8); Monocytes % (Auto) 9 % (0-12); Neutrophils # (Auto) 3.1 Thou/mm3 (1.8-7.7); Neutrophils % (Auto) 45 % (37-80); Nucleated Red Blood Cell % 0 /100 WBC (0); Platelet Count 358 Thou/mm3 (140-440); RDW Standard Deviation 47.1 fL (36.4-46.3); Red Blood Count 3.92 Miln/mm3 (4.00-5.20); White Blood Count 6.9 Thou/mm3 (3.6-11.0)
[2024-04-25 10:33] LABS: Glucose Estimated Average 143 mg/dL (80-131); Hemoglobin A1C 6.6 % Hgb (4.8-6.0)
[2024-04-25 10:40] LABS: Albumin, Serum 4.2 gm/dL (3.4-4.8); Anion Gap 7 (7-16); BUN/Creatinine Ratio 20 Ratio (12-20); Blood Urea Nitrogen 18 mg/dL (9-23); Calcium 9.6 mg/dL (8.3-10.6); Calcium (Corrected) 9.6 mg/dL (8.5-10.1); Carbon Dioxide 25.9 mMol/L (20.0-31.0); Chloride 105 mMol/L (98-107); Creatinine (Component) 0.9 mg/dL (0.6-1.3); Glucose 165 mg/dL (74-106); Osmolality,Calculated 281 (275-295); Phosphorous 4.7 mg/dL (2.4-5.1); Potassium 4.7 mMol/L (3.4-5.1); Sodium 138 mMol/L (136-145); eGFR > 60 See Note
== END | disposition home or self-care (01) ==
PROVIDERS: PCP Internal Medicine; Referring Provider Internal Medicine; Visit Provider Internal Medicine
DX: I11.0 Hypertensive heart disease with heart failure (principal)
CPT/HCPCS: 36415; 80069; 83036; 85025

== ENCOUNTER → 2024-05-31 | Outpatient (CLI) | payer MEDICARE, MEDICAID, SELFPAY ==
--- NOTE | 2024-05-31 08:23 | XR_ITS ---
Examination: PA lateral chest 2 views Technique: Upright PA lateral chest 2 views Exam date and time: May 31, 2024 at 0838 hrs. Comparison March 24, 2024 Indications: Pneumonia left lung on chest film March 24, 2024 Findings: Pneumonia left lung has cleared Mild prominence cardiac contour Mild vascular congestion No interval pneumonia or pulmonary edema Impression: Left lung pneumonia has cleared No interval pneumonia or pulmonary edema
== END | disposition home or self-care (01) ==
PROVIDERS: PCP Pediatrics; Referring Provider Pediatrics; Visit Provider Pediatrics
DX: J18.9 Pneumonia, unspecified organism (principal)
CPT/HCPCS: 71046

== ENCOUNTER → 2024-06-02 | Outpatient (CLI) | payer MEDICARE, MEDICAID, SELFPAY ==
--- NOTE | 2024-06-02 08:30 | XR_ITS ---
Exam: Double contrast Gastrografin enema. DATE: 06/02/2024, 8:53 AM INDICATION: Screening for colon cancer. Patient unable to undergo colonoscopy. Fluoroscopy time: 2.7 minutes Dose: 210.53 mGy FINDINGS: Contrast was advanced into the colon through a rectal tip with balloon. Contrast is seen opacifying a normal appearing rectum, sigmoid colon, descending colon, transverse colon and ascending colon. Contrast seen refluxing into the distal small bowel. No evidence of mass, filling defect,, stricture, diverticulum or mucosal abnormality. IMPRESSION: Normal double contrast Gastrografin.
== END | disposition home or self-care (01) ==
PROVIDERS: PCP Internal Medicine; Referring Provider Surgery; Visit Provider Surgery
DX: Z12.11 Encounter for screening for malignant neoplasm of colon (principal)
CPT/HCPCS: 74280

== ENCOUNTER → 2024-06-21 | Outpatient (CLI) | payer MEDICARE, MEDICAID, SELFPAY ==
--- NOTE | 2024-06-21 11:15 | XR_ITS ---
Examination: Screening digital mammography, bilateral Computer aided detection 3-D breast Tomosynthesis, bilateral Date and time of exam: June 21, 2024 at 1105 hours Compared to mammograms dating to August 10, 2017 Indication: Screening Technique: Nonmagnified MLO, CC views of the breasts to been obtained, reconstructed from 3-D Tomosynthesis images. R2 computer aided detection program utilized for evaluation of suspicious masses and/or abnormal calcifications. 3-D Tomosynthesis images obtained. Findings: The breasts are heterogeneously dense, which may obscure small masses 4 mm focal asymmetry 3:00 position right breast Benign calcifications Impression: BI-RADS Category 0: Incomplete: Need additional imaging evaluation 4 mm focal asymmetry 3:00 position right breast, recommend follow-up spot tomographic views of this asymmetry as well as right breast sonography to complete the workup
== END | disposition home or self-care (01) ==
PROVIDERS: Referring Provider Internal Medicine; Visit Provider Internal Medicine
DX: Z12.31 Encounter for screening mammogram for malignant neoplasm of breast (principal); R92.8 Other abnormal and inconclusive findings on diagnostic imaging of breast; N64.89 Other specified disorders of breast
CPT/HCPCS: 77063; 77067

== ENCOUNTER → 2024-07-06 | Outpatient (CLI) | payer MEDICARE, MEDICAID, SELFPAY ==
[2024-07-06 09:39] LABS: Basophils # (Auto) 0.1 Thou/mm3 (0.0-0.2); Basophils % (Auto) 1 % (0-2.5); Eosinophils # (Auto) 0.3 Thou/mm3 (0.0-0.5); Eosinophils % (Auto) 3 % (0-10); Hematocrit 32.2 % (36.0-46.0); Hemoglobin 10.3 g/dL (12.0-16.0); Immature Granulocytes % (Auto) 0 % (0-0); Immature Granulocytes Auto 0.02 Thou/mm3 (0.00-0.00); Lymphocytes # (Auto) 2.9 Thou/mm3 (1.0-4.8); Lymphocytes % (Auto) 32 % (10-50); Mean Corpuscular Hemoglobin 27.5 pg (25.0-35.0); Mean Corpuscular Volume 86 fL (80-100); Monocytes # (Auto) 0.7 Thou/mm3 (0.0-0.8); Monocytes % (Auto) 8 % (0-12); Neutrophils # (Auto) 5.1 Thou/mm3 (1.8-7.7); Neutrophils % (Auto) 57 % (37-80); Nucleated Red Blood Cell % 0 /100 WBC (0); Platelet Count 373 Thou/mm3 (140-440); RDW Standard Deviation 46.4 fL (36.4-46.3); Red Blood Count 3.75 Miln/mm3 (4.00-5.20)
[2024-07-06 10:08] LABS: Glucose Estimated Average 148 mg/dL (80-131); Hemoglobin A1C 6.8 % Hgb (4.8-6.0); Vitamin D 25 Hydroxy Total 42.2 ng/mL (7.3-40.2)
[2024-07-06 10:15] LABS: Alanine Aminotransferase 28 U/L (10-49); Albumin, Serum 4.1 gm/dL (3.4-4.8); Albumin/Globulin Ratio 1.7 (1.2-2.2); Alkaline Phosphatase 54 U/L (46-116); Anion Gap 6 (7-16); Aspartate Amino Transferase 19 U/L (0-34); BUN/Creatinine Ratio 17 Ratio (12-20); Bilirubin,Total 0.5 mg/dL (0.3-1.2); Blood Urea Nitrogen 15 mg/dL (9-23); Calcium 9.3 mg/dL (8.3-10.6); Calcium (Corrected) 9.3 mg/dL (8.5-10.1); Carbon Dioxide 26.6 mMol/L (20.0-31.0); Cardiac Risk Estimate 2.4 RATIO (3.7-5.6); Chloride 106 mMol/L (98-107); Cholesterol 114 mg/dL (132-200); Creatinine (Component) 0.9 mg/dL (0.6-1.3); Free T4 (Free Thyroxine) 1.13 ng/dL (0.89-1.76); Globulin 2.4 gm/dL (2.3-3.5); Glucose 95 mg/dL (74-106); HDL Cholesterol 48 mg/dL (40-60); LDL Cholesterol,Calculated 47 mg/dL (0-130); Osmolality,Calculated 278 (275-295); Potassium 4.4 mMol/L (3.4-5.1); Sodium 139 mMol/L (136-145); Thyroid Stimulating Hormone 1.36 uIU/mL (0.55-4.78); Total Protein 6.5 gm/dL (5.7-8.2); Triglycerides 95 mg/dL (30-150); eGFR > 60 See Note
== END | disposition home or self-care (01) ==
LOC: COPL 09:02
PROVIDERS: PCP Internal Medicine; Referring Provider Internal Medicine; Visit Provider Internal Medicine
DX: E03.9 Hypothyroidism, unspecified (principal); E11.9 Type 2 diabetes mellitus without complications; E55.9 Vitamin D deficiency, unspecified; E78.2 Mixed hyperlipidemia; I11.0 Hypertensive heart disease with heart failure
CPT/HCPCS: 36415; 80053; 80061; 82306; 83036; 84439; 84443; 85025

== ENCOUNTER → 2024-07-21 | Outpatient (CLI) | payer MEDICARE, MEDICAID, SELFPAY ==
--- NOTE | 2024-07-21 08:00 | XR_ITS ---
Examination: Breast ultrasound, unilateral, right complete Date and time of exam: July 21, 2024 0835 hours INDICATIONS: Mammogram June 21, 2024 4 mm focal asymmetry 3:00 position right breast Technique: Real-time mills scale ultrasonographic imaging performed right breast including all 4 quadrants as well as nipple retroareolar and axillary region. Findings: 2:00 cyst 3 x 4 mm 3:00 nodule circumscribed 4 x 3 mm Retroareolar nodule partially indistinct margins 14 x 6 x 16 mm IMPRESSION: BI-RADS Category 4: Suspicious for malignancy Suspicious nodule retroareolar region right breast Biopsy is needed to exclude breast carcinoma This nodule is amenable to ultrasound-guided breast biopsy for diagnosis
--- NOTE | 2024-07-21 08:30 | XR_ITS ---
Examination: Diagnostic digital mammography, unilateral, right Computer aided detection 3-D breast Tomosynthesis, unilateral Date and time of exam: July 21, 2024 0832 hours INDICATIONS: Mammogram June 21, 2024 4 mm focal asymmetry 3:00 position right breast Technique: Nonmagnified MLO, CC views of the right breast have been obtained, reconstructed from 3-D Tomosynthesis images. R2 computer aided detection program utilized for evaluation of suspicious masses and/or abnormal calcifications. 3-D Tomosynthesis images obtained. Findings: The breast is heterogeneously dense, which may obscure small masses Focal asymmetry retroareolar region right breast, please see the right breast sonogram report today indicating BI-RADS 4 suspicious nodule 14 mm x 16 mm retroareolar region right breast Impression: BI-RADS category 4: Suspicious for malignancy Right breast sonogram report today indicating BI-RADS 4 suspicious nodule retroareolar region right breast, biopsy is needed to exclude breast carcinoma, this mass is amenable to ultrasound-guided breast biopsy for diagnosis
== END | disposition home or self-care (01) ==
LOC: CDIM 07:48
PROVIDERS: PCP Internal Medicine; Referring Provider Internal Medicine; Visit Provider Internal Medicine
DX: R92.341 Mammographic extreme density, right breast (principal); N63.41 Unspecified lump in right breast, subareolar
CPT/HCPCS: 76641; 77061; 77065; G0279

== ENCOUNTER → 2024-09-25 | Outpatient (CLI) | payer MEDICARE, MEDICAID, SELFPAY ==
[2024-09-22 08:54] LABS: Basophils # (Auto) 0.1 Thou/mm3 (0.0-0.2); Basophils % (Auto) 1 % (0-2.5); Eosinophils # (Auto) 0.3 Thou/mm3 (0.0-0.5); Eosinophils % (Auto) 2 % (0-10); Hematocrit 36.1 % (36.0-46.0); Hemoglobin 11.8 g/dL (12.0-16.0); Immature Granulocytes % (Auto) 0 % (0-0); Immature Granulocytes Auto 0.03 Thou/mm3 (0.00-0.00); Lymphocytes # (Auto) 3.2 Thou/mm3 (1.0-4.8); Lymphocytes % (Auto) 30 % (10-50); Mean Corpuscular HGB Conc 32.7 g/dl (31.0-37.0); Mean Corpuscular Hemoglobin 26.4 pg (25.0-35.0); Mean Corpuscular Volume 81 fL (80-100); Monocytes # (Auto) 0.9 Thou/mm3 (0.0-0.8); Monocytes % (Auto) 8 % (0-12); Neutrophils # (Auto) 6.4 Thou/mm3 (1.8-7.7); Neutrophils % (Auto) 59 % (37-80); Nucleated Red Blood Cell % 0 /100 WBC (0); Platelet Count 407 Thou/mm3 (140-440); RDW Standard Deviation 39.9 fL (36.4-46.3); Red Blood Count 4.47 Miln/mm3 (4.00-5.20); White Blood Count 10.8 Thou/mm3 (3.6-11.0)
[2024-09-22 09:01] LABS: INR 1.1 (0.9-1.3); Partial Thromboplastin Time 25.9 Seconds (22.0-36.0)
--- NOTE | 2024-09-25 09:30 | XR_ITS ---
Examination: Ultrasound right breast Limited TECHNIQUE: Limited sonographic images right breast retroareolar Date and time: September 25, 2024, 1005 hours INDICATIONS: Right breast sonogram July 21, 2024 suspicious nodule retroareolar region right breast FINDINGS: Current sonographic images demonstrate no retro-orbital nodule IMPRESSION: BI-RADS Category 1: Negative study, no biopsy performed
== END | disposition home or self-care (01) ==
PROVIDERS: Radiology Diagnostic Radiology; PCP Internal Medicine; Referring Provider Internal Medicine; Visit Provider Internal Medicine
DX: N63.10 Unspecified lump in the right breast, unspecified quadrant (principal)
CPT/HCPCS: 36415; 76642; 85025; 85610; 85730

== ENCOUNTER → 2025-01-03 | Outpatient (CLI) | payer MEDICARE, MEDICAID, SELFPAY ==
[2025-01-03 08:35] LABS: Basophils # (Auto) 0.1 Thou/mm3 (0.0-0.2); Basophils % (Auto) 1 % (0-2.5); Eosinophils # (Auto) 0.3 Thou/mm3 (0.0-0.5); Eosinophils % (Auto) 4 % (0-10); Hematocrit 33.9 % (36.0-46.0); Hemoglobin 10.5 g/dL (12.0-16.0); Immature Granulocytes Auto 0.02 Thou/mm3 (0.00-0.00); Lymphocytes # (Auto) 2.9 Thou/mm3 (1.0-4.8); Lymphocytes % (Auto) 32 % (10-50); Mean Corpuscular HGB Conc 31.0 g/dl (31.0-37.0); Mean Corpuscular Hemoglobin 26.6 pg (25.0-35.0); Mean Corpuscular Volume 86 fL (80-100); Monocytes # (Auto) 0.8 Thou/mm3 (0.0-0.8); Monocytes % (Auto) 9 % (0-12); Neutrophils # (Auto) 5.0 Thou/mm3 (1.8-7.7); Neutrophils % (Auto) 55 % (37-80); Nucleated Red Blood Cell # 0.00 Thou/mm3 (0.00-0.00); Nucleated Red Blood Cell % 0 /100 WBC (0); Platelet Count 353 Thou/mm3 (140-440); RDW Standard Deviation 51.3 fL (36.4-46.3); Red Blood Count 3.94 Miln/mm3 (4.00-5.20); White Blood Count 9.1 Thou/mm3 (3.6-11.0)
[2025-01-03 08:48] LABS: Glucose Estimated Average 148 mg/dL (80-131); Hemoglobin A1C 6.8 % Hgb (4.8-6.0)
[2025-01-03 08:57] LABS: Alanine Aminotransferase 24 U/L (10-49); Albumin, Serum 3.9 gm/dL (3.4-4.8); Albumin/Globulin Ratio 1.4 (1.2-2.2); Alkaline Phosphatase 66 U/L (46-116); Anion Gap 8 (7-16); Aspartate Amino Transferase 19 U/L (0-34); BUN/Creatinine Ratio 17 Ratio (12-20); Bilirubin,Total 0.3 mg/dL (0.3-1.2); Blood Urea Nitrogen 15 mg/dL (9-23); Calcium 9.6 mg/dL (8.3-10.6); Calcium (Corrected) 9.7 mg/dL (8.5-10.1); Carbon Dioxide 26.6 mMol/L (20.0-31.0); Cardiac Risk Estimate 3.7 RATIO (3.7-5.6); Chloride 106 mMol/L (98-107); Cholesterol 157 mg/dL (132-200); Creatinine (Component) 0.9 mg/dL (0.6-1.3); Free T4 (Free Thyroxine) 1.04 ng/dL (0.89-1.76); Globulin 2.8 gm/dL (2.3-3.5); Glucose 121 mg/dL (74-106); HDL Cholesterol 43 mg/dL (40-60); LDL Cholesterol,Calculated 61 mg/dL (0-130); Osmolality,Calculated 283 (275-295); Potassium 4.5 mMol/L (3.4-5.1); Sodium 141 mMol/L (136-145); Thyroid Stimulating Hormone 2.01 uIU/mL (0.55-4.78); Total Protein 6.7 gm/dL (5.7-8.2); Triglycerides 264 mg/dL (30-150); eGFR > 60 See Note
[2025-01-03 09:07] LABS: Vitamin D 25 Hydroxy Total 31.8 ng/mL (7.3-40.2)
== END | disposition home or self-care (01) ==
LOC: COPL 06:56
PROVIDERS: PCP Internal Medicine; Referring Provider Internal Medicine; Visit Provider Internal Medicine
DX: I11.0 Hypertensive heart disease with heart failure (principal); E11.9 Type 2 diabetes mellitus without complications; E55.9 Vitamin D deficiency, unspecified; E03.9 Hypothyroidism, unspecified
CPT/HCPCS: 36415; 80053; 80061; 80074; 82306; 83036; 84439; 84443; 85025